=== PATIENT | male | born 1970 | race Caucasian/White ===

== ENCOUNTER 2022-08-19 20:01 | Inpatient (IN) | payer OTHER ==
[~2022-08-19] VITALS: Ht 160 cm; Wt 104.8 kg
--- NOTE | 2022-08-19 20:02 | NUR ---
PT BROUGHT TO BED 8 VIA BETINA IRVIN
[2022-08-19 20:03] VITALS: BP 114/29
[2022-08-19 20:52] LABS: MEAN CORPUSCULAR HEMOGLOBIN 21 pg (27-31); MEAN CORPUSCULAR HGB CONC 28 g/dL (33-37); PLATELET COUNT (AUTO) 584 K/uL (140-450); RED BLOOD CELL COUNT(AUTO) 2.21 MIL/uL (4.20-6.10); RED CELL DISTRIBUTION WIDTH 21.8 % (11.6-13.7)
[2022-08-19 21:14] LABS: WHITE BLOOD COUNT (AUTO) 43.5 K/uL (4.8-10.8)
[2022-08-19 21:15] LABS: HEMATOCRIT 16.6 % (36-52); HEMOGLOBIN 4.7 g/dL (12.0-18.0)
[2022-08-19] MEDS ORDERED: cefTRIAXone 1,000 MG in DEXT 5% MINI-BAG PLUS 50 ML IV ONE (21:15)
[2022-08-19] MEDS: NACL 0.9% 1,000 ML IV SCH (21:27)
[2022-08-19 21:28] LABS: ALBUMIN 2.7 g/dL (3.4-5.0); CARBON DIOXIDE 27.7 mmol/L (21-32); CREATININE 1.5 mg/dL (0.6-1.3); POTASSIUM 4.7 mmol/L (3.5-5.1); TOTAL BILIRUBIN 1.7 mg/dL (0.0-1.0)
[2022-08-19] MEDS ORDERED: cefTRIAXone 1,000 MG VIAL ONE (21:29)
[2022-08-19 21:42] LABS: CORRECTED WHITE BLOOD COUNT 39.9 K/uL (4.5-11.0); EOSINOPHILS % (MANUAL) 1 % (0-4); LYMPHOCYTES % (MANUAL) 21 % (20-46); MONOCYTES % (MANUAL) 3 % (5-12)
[2022-08-19 21:43] LABS: PROMYELOCYTES % 1 % (0-0)
[2022-08-19 21:52] LABS: PROTHROMBIN TIME 18.6 secs (10.8-13.4)
[2022-08-19] MEDS ORDERED: NACL 0.9% 1,000 ML IV ONE (21:55)
[2022-08-19] MEDS ORDERED: VANCOMYCIN PER PHARMACY MC PRN (23:10)
--- NOTE | 2022-08-19 23:40 | NUR ---
CALLED TO BEDSIDE BY CHAPITO NULL, RECEIVED PT ON 6L NC SATING 85% AND TACHYNEIC. BREATH SOUNDS WERE CLEAR, DIMINISHED AT THE BASES. PLACED PT ON HIGH FOW 40L/min, 60%, 37DEG JERAMY. PT THEN SATING 100% RR 20 AND HR 105.
--- NOTE | 2022-08-19 23:43 | NUR ---
RT by bedside. O2 sat 85% on 6L NC. Pt placed on hi flow at 40 L/MIN and O2 sat 97%
--- NOTE | 2022-08-19 23:46 | NUR ---
Blood transfusion started. VSS. Pt alert and responsive. Denies any pain or discomfort at this time
[2022-08-20] VITALS (21 sets, daily range): BP systolic 94–140; BP diastolic 48–119
--- NOTE | 2022-08-20 00:01 | NUR ---
Pt on hi flow. o2 sat 97% on 40L/min, 60% O2
--- NOTE | 2022-08-20 00:01 | NUR ---
Pt alert and responsive at this time. Resting comfortably. VSS. Blood infusing at this time.
[2022-08-20] MEDS ORDERED: VANCOMYCIN 1GM/DEXT 5% PREMIX 200 ML IV SCH (00:30)
--- NOTE | 2022-08-20 01:10 | NUR ---
Report given to Luis URIARTE
[2022-08-20] MEDS ORDERED: VANCOMYCIN 1,000 MG VIAL ONE ×2 (02:26→22:01)
[2022-08-20] MEDS: NACL 0.9% 1,000 ML IV SCH (02:58)
[2022-08-20] MEDS ORDERED: PIPERACILLIN/TAZOBACTAM 3.375 GM VIAL IV ONE (05:01)
[2022-08-20] MEDS: PIPERACILLIN/TAZOBACTAM 3.375 GM in DEXTROSE 5% 50 ML IV SCH ×2 (05:32→13:21)
[2022-08-20] MEDS ORDERED: LEVOFLOXACIN 500 MG/D5W PREMIX 100 ML IV SCH (06:00)
--- NOTE | 2022-08-20 07:15 | NUR ---
RECEIVED BEDSIDE REPORT FROM DIRECTOR OF WEB MARKETING MEMO RN. PT AWAKE, ALERT TO PLACE AND YEAR. ON HI FLOW O2 40L 60%, NO S/S OF ACUTE OF RESPIRATORY DISTRESS. INTERMITTED COUGH. ST ON MONITOR. IV 20 G TO RT HAND, INFUSING 1 UNIT PRBC @ 150 MLS/H, TKO@ 5ML/S,. LT AC 20 G, SALINE LOCKED. NPO EXCEPT MEDS. URINAL IN USE, URINE CLEAR AND LIGHT LUIS. GENERALIZED WEAKNESS, BEDREST. SKIN INTACT. HOB ELEVATED, BED TO LOWEST POSITION, CALL LIGHT WITHIN REACH, WILL CONTINUE TO MONITOR.
[2022-08-20] MEDS ORDERED: NACL 0.9% 1,000 ML IV SCH (09:05)
[2022-08-20] MEDS ORDERED: MAG SULF 2000 MG/WATER PREMIX 50 ML IV PRN (09:05)
[2022-08-20] MEDS ORDERED: POTASSIUM CHLORIDE 10 MEQ TABER PO PRN (09:05)
[2022-08-20] MEDS ORDERED: ONDANSETRON 4 MG/2 ML VIAL IVP PRN (09:05)
[2022-08-20] MEDS ORDERED: HYDROcodone/APAP 7.5/325 MG 1 TAB PO PRN (09:05)
[2022-08-20] MEDS ORDERED: DEXTROSE 50% 50 ML SYR IVP PRN (09:10)
[2022-08-20 10:00] LABS: APPEARANCE,URINE CLEAR (CLEAR); BILIRUBIN,URINE NEGATIVE (NEGATIVE); BLOOD, URINE NEGATIVE (NEGATIVE); COLOR,URINE YELLOW (YELLOW); LEUKOCYTE ESTERASE ,URINE NEGATIVE (NEGATIVE); NITRITE, URINE NEGATIVE (NEGATIVE); UGLUCOSE NEGATIVE (NEGATIVE)
[2022-08-20 10:13] LABS: BARBITURATE, URINE NEGATIVE ng/ml (NEG <=200); BENZODIAZEPINE, URINE NEGATIVE ng/mL (NEG <=200); CANNABINOID, URINE NEGATIVE ng/mL (NEG <=50); COCAINE, URINE NEGATIVE ng/mL (NEG <=300); OPIATE, URINE NEGATIVE ng/mL (NEG <=2000); PHENCYCLIDINE SCREEN,URINE NEGATIVE ng/mL (NEG <=25)
--- NOTE | 2022-08-20 10:45 | NUR ---
DR WEST ROUNDFRED AT BEDSIDE. UPDATED PT INFORMATION.
[2022-08-20 11:23] LABS: BASOPHILS # (AUTO) 0.1 K/uL (0.00-0.22); BASOPHILS % (AUTO) 0.2 % (0.0-2.0); EOSINOPHILS # (AUTO) 0.6 K/uL (0-0.4); EOSINOPHILS % (AUTO) 1.4 % (0.0-4.0); HEMATOCRIT 20.5 % (36-52); LYMPHOCYTES # (AUTO) 5.4 K/uL (2.0-11.5); MEAN CORPUSCULAR HEMOGLOBIN 24 pg (27-31); MEAN CORPUSCULAR HGB CONC 31 g/dL (33-37); MEAN CORPUSCULAR VOLUME 79.3 fL (80-94); MONOCYTES # (AUTO) 3.2 K/uL (0.8-1.0); MONOCYTES % (AUTO) 7.8 % (1.7-9.3); NEUTROPHILS # (AUTO) 32.2 K/uL (1.8-7.7); NEUTROPHILS % (AUTO) 77.6 % (42.2-75.2); PLATELET COUNT (AUTO) 442 K/uL (140-450); RED BLOOD CELL COUNT(AUTO) 2.58 MIL/uL (4.20-6.10)
[2022-08-20] MEDS: BLOOD GLUCOSE MONITORING 1 DEV DEV FS SCH ×3 (11:30→21:56)
[2022-08-20 11:40] LABS: HEMOGLOBIN 6.3 g/dL (12.0-18.0); WHITE BLOOD COUNT (AUTO) 41.5 K/uL (4.8-10.8)
[2022-08-20 11:54] LABS: PROTHROMBIN TIME 14.9 secs (10.8-13.4)
[2022-08-20 12:04] LABS: ANION GAP 5.4 (8-16); CARBON DIOXIDE 34.9 mmol/L (21-32); CREATININE 0.8 mg/dL (0.6-1.3); POTASSIUM 5.3 mmol/L (3.5-5.1)
[2022-08-20 12:11] LABS: FREE T4 (FREE THYROXINE) 0.98 ng/dL (0.76-1.46); MAGNESIUM 2.6 mg/dL (1.8-2.4); PHOSPHORUS 2.7 mg/dL (2.5-4.9); THYROID STIMULATING HORMONE 2.37 uIU/mL (0.34-3.74)
--- NOTE | 2022-08-20 12:35 | NUR ---
DR SILVA ROUNDING AT BEDSIDE. UPDATED PT INFORMATION. ORDERED DC IVF NS.
[2022-08-20] MEDS ORDERED: LACTULOSE 20 GM/30 ML UDC PO SCH (13:00)
--- NOTE | 2022-08-20 13:42 | NUR ---
RECEIVED PHONE CALL FROM DR TATUM. PUT PT ON BIPAP, ABG AT 5PM.
[2022-08-20] MEDS ORDERED: SODIUM ZIRCONIUM CYCLOSILICATE 10 GM POWD.PACK PO SCH (15:00)
--- NOTE | 2022-08-20 15:42 | NUR ---
PATIENT HAS BEEN SCREENED AND CATEGORIZED HIGH NUTRITION RISK. PATIENT WILL BE SEEN WITHIN 1-2 DAYS OF ADMISSION. REVIEWED BY DEONNA HAYDEN RD
--- NOTE | 2022-08-20 16:39 | NUR ---
ABG RESULTS SENT TO WAITING FOR RESPONSE. NURSE MADE AWARE OF RESULTS.
--- NOTE | 2022-08-20 16:54 | NUR ---
AWARE OF ABG RESULTS. NO NEW ORDERS AT THIS TIME. WILL CONTINUE TO MONITOR.
--- NOTE | 2022-08-20 17:45 | NUR ---
VERBAL ABG GIVEN BY DR. TATUM FOR PT BEFORE INTUBATION. PH7.256,PCO2 81.0, PO2 73.8,HCO3 35.2,BE 6.8, THB 8.0, FO2HB 1.7, FCOHB 1.7, FMETHB 0.4, FHHB 7.4, O2 SAT 91.7, PO2/FIO2 1.85 ON 40%. WA;LED RESULTS TO DR TATUM.
--- NOTE | 2022-08-20 18:07 | NUR ---
PT INTUBATED BY DR TATUM. 20MG ETOMIDATE, 50 ROCURONIUM. ETT 7.5, 24 CM @ LIP. ETT TO VENT, AC VC FIO2 100%, VT 500, RATE 20, PEEP 5. NG TUBE INSERTED TO LT NARE. CONFIRMED BY CHEST XR.
--- NOTE | 2022-08-20 18:08 | NUR ---
PT INTUBATED BY ETT 7.5 SECURED @24 TEETH/GUM. BILATERAL BREATH SOUNDS. PROPER PLACEMENT BY COLOR CHANGE WITH CO2 DETECTOR. CXR TO BE ORDERED.
--- NOTE | 2022-08-20 18:31 | NUR ---
PT ON VENTILATOR 7.5 ETT NOW SECURED @23 TEETH/GUM DUE TO CXR. VENT IS PLUGGED INTO A RED OUTLET WITH ALARMS ON AND FUNCTIONING. VENT SETTINGS ORDERED BY AC 20, VT 500, PEEP 5 AND FIO2 100%. AMBU BAG IS PRESENT NEAR BEDSIDE.
[2022-08-20] MEDS ORDERED: fentaNYL citrate 1 MG in NACL 0.9% 80 ML IV PRN (19:10)
--- NOTE | 2022-08-20 19:15 | NUR ---
ENDORSED TO DOBBY LOOM WEAVER MEMO RN FOR CONTINUITY OF CARE. ALL QUESTION ANSWERED.
[2022-08-20] MEDS ORDERED: DEXMEDETOMIDINE HCL 100 MCG/ML 2 ML VIAL IV ONE (19:18)
[2022-08-20] MEDS: AZITHROMYCIN 500 MG in DEXTROSE 5% 250 ML IV SCH (19:34)
[2022-08-20] MEDS ORDERED: MULTIVITAMIN-12 10 ML in NACL 0.9% 1,000 ML IV SCH (20:00)
[2022-08-20] MEDS ORDERED: THIAMINE 200 MG/2 ML VIAL IV SCH (20:00)
[2022-08-20] MEDS ORDERED: FOLIC ACID 5 MG/ML SYR IV SCH (20:00)
[2022-08-20] MEDS ORDERED: fentaNYL citrate 0.05 MG/ML VIAL ONE (20:08)
[2022-08-20 20:11] LABS: BASOPHILS # (AUTO) 0.3 K/uL (0.00-0.22); BASOPHILS % (AUTO) 0.7 % (0.0-2.0); EOSINOPHILS # (AUTO) 0.8 K/uL (0-0.4); EOSINOPHILS % (AUTO) 1.9 % (0.0-4.0); HEMATOCRIT 24.5 % (36-52); HEMOGLOBIN 7.7 g/dL (12.0-18.0); LYMPHOCYTES # (AUTO) 6.6 K/uL (2.0-11.5); LYMPHOCYTES % (AUTO) 14.9 % (20.5-51.1); MEAN CORPUSCULAR HEMOGLOBIN 26 pg (27-31); MEAN CORPUSCULAR HGB CONC 31 g/dL (33-37); MEAN CORPUSCULAR VOLUME 81.7 fL (80-94); MONOCYTES # (AUTO) 2.6 K/uL (0.8-1.0); MONOCYTES % (AUTO) 5.9 % (1.7-9.3); NEUTROPHILS # (AUTO) 33.9 K/uL (1.8-7.7); NEUTROPHILS % (AUTO) 76.6 % (42.2-75.2); PLATELET COUNT (AUTO) 446 K/uL (140-450); RED CELL DISTRIBUTION WIDTH 23.5 % (11.6-13.7)
[2022-08-20 20:15] LABS: WHITE BLOOD COUNT (AUTO) 44.2 K/uL (4.8-10.8)
[2022-08-20] MEDS: VANCOMYCIN 1,500 MG in DEXTROSE 5% 500 ML IV SCH (21:00)
[2022-08-20] MEDS ORDERED: MULTIVITAMIN-12 10 ML VIAL IV ONE (21:18)
[2022-08-20] MEDS: DOCUSATE SODIUM 100 MG GELCAP PO SCH (21:56)
[2022-08-20] MEDS: LACTULOSE 20 GM/30 ML UDC PO SCH (21:56)
[2022-08-20] MEDS ORDERED: VANCOMYCIN 500 MG VIAL ONE (22:01)
[2022-08-20] MEDS: PROPOFOL 1000 MG/100 ML PREMIX 100 ML IV PRN (22:04)
[2022-08-21] VITALS (32 sets, daily range): BP systolic 104–126; BP diastolic 54–80
[2022-08-21] MEDS: PROPOFOL 1000 MG/100 ML PREMIX 100 ML IV PRN ×3 (04:12→13:21)
[2022-08-21 05:56] LABS: BASOPHILS # (AUTO) 0.1 K/uL (0.00-0.22); BASOPHILS % (AUTO) 0.1 % (0.0-2.0); EOSINOPHILS # (AUTO) 0.9 K/uL (0-0.4); EOSINOPHILS % (AUTO) 2.1 % (0.0-4.0); HEMATOCRIT 21.5 % (36-52); LYMPHOCYTES # (AUTO) 5.3 K/uL (2.0-11.5); LYMPHOCYTES % (AUTO) 13.1 % (20.5-51.1); MEAN CORPUSCULAR HEMOGLOBIN 25 pg (27-31); MEAN CORPUSCULAR HGB CONC 31 g/dL (33-37); MEAN CORPUSCULAR VOLUME 81.1 fL (80-94); NEUTROPHILS # (AUTO) 31.9 K/uL (1.8-7.7); NEUTROPHILS % (AUTO) 79.7 % (42.2-75.2); PLATELET COUNT (AUTO) 403 K/uL (140-450); RED BLOOD CELL COUNT(AUTO) 2.64 MIL/uL (4.20-6.10); RED CELL DISTRIBUTION WIDTH 23.2 % (11.6-13.7)
[2022-08-21 06:11] LABS: ANION GAP 9.5 (8-16); CARBON DIOXIDE 30.4 mmol/L (21-32); CREATININE 0.7 mg/dL (0.6-1.3); POTASSIUM 3.9 mmol/L (3.5-5.1)
[2022-08-21 06:15] LABS: HEMOGLOBIN 6.7 g/dL (12.0-18.0); WHITE BLOOD COUNT (AUTO) 40.1 K/uL (4.8-10.8)
[2022-08-21 06:30] LABS: MAGNESIUM 2.6 mg/dL (1.8-2.4); PHOSPHORUS 1.7 mg/dL (2.5-4.9)
--- NOTE | 2022-08-21 06:45 | NUR ---
RECEIVED PT ON ACVC 500,F25,+5,60%. VENT WHEELS ARE LOCKED, PLUGGED INTO RED OUTLET, AMBUBAG AT BEDSIDE. ALARMS ARE SET AND AUDIBLE TO THE ENVIRONMENT. SATURATION WAS 100%. FIO2 WAS TITRATED FROM 60% TO 55%.
--- NOTE | 2022-08-21 07:25 | NUR ---
BEDSIDE REPORT RECEIVED FROM MEMO RN, ALL CARES ASSUMED. PT ETT TO VENT, AC PRVC 25, 500, 60%, 5. CARTER CATHETER DRAINING TO GRAVITY. LEVOPHED AND PROPOFOL INFUSING PER TITRATION PROTOCOL. BED IN LOW AND LOCKED POSITION.
[2022-08-21] MEDS: BLOOD GLUCOSE MONITORING 1 DEV DEV FS SCH ×4 (08:10→21:23)
[2022-08-21] MEDS: PANTOPRAZOLE 40 MG INJ VIAL IVP SCH (08:35)
[2022-08-21] MEDS: DOCUSATE SODIUM 100 MG GELCAP PO SCH ×2 (08:35→21:00)
[2022-08-21] MEDS: LACTULOSE 20 GM/30 ML UDC PO SCH ×2 (08:37→21:00)
[2022-08-21 11:10] LABS: HEPATITIS A ANTIBODY IGM Negative (Negative); HEPATITIS B CORE AB TOTAL Negative (Negative); HEPATITIS B SURFACE ANTIBODY Non Reactive (.); HEPATITIS B SURFACE ANTIGEN Negative (Negative)
[2022-08-21] MEDS ORDERED: fentaNYL citrate 0.05 MG/ML VIAL ONE (13:21)
[2022-08-21] MEDS ORDERED: MIDAZOLAM 5 MG/5 ML VIAL ONE (13:21)
[2022-08-21] MEDS ORDERED: PANTOPRAZOLE 40 MG INJ VIAL IVP ONE (14:40)
[2022-08-21] MEDS ORDERED: GLUCAGON 1 MG VIAL ONE (14:45)
[2022-08-21] MEDS ORDERED: EPINEPHrine PFS 0.1 MG/ML SYR IVP ONE (14:46)
[2022-08-21] MEDS: VANCOMYCIN 1,500 MG in DEXTROSE 5% 500 ML IV SCH (15:00)
--- NOTE | 2022-08-21 15:06 | NUR ---
DC PLANNING ASSESSMENT COMPLETE SEE ASSESSMENT FOR DETAILS PER KIMBERLY, HE WILL MAKE EFFORTS IN REACHING PTS FAMILY IN [place] TO MAKE THEM AWARE OF PTS ADMISSION TO [facility]. Addendum: 08/21/22 at 1509 by Brian Martin SS Amended: Links added. Addendum: 08/28/22 at 1639 by Brian Martin SS ATTEMPTED TO OUTREACH TO PTS EMERGENCY CONTACT FOR UPDATE ON FAMILY CONTACT, HOWEVER, UNSUCCESSFUL. MESSAGE LEFT REQUESTING A RETURN PHONE CALL.
--- NOTE | 2022-08-21 15:24 | NUR ---
08/21/22 INITIAL ASSESSMENT COMPLETED PLEASE REFER TO NUTRITION ASSESSMENT UNDER CARE ACTIVITY FOR ESTIMATED NUTRITIONAL NEEDS. 1. WHEN/IF MEDICALLY APPROPRIATE TO INITIATE TF, RECOMMEND GLUCERNA 1.2 AT GOAL RATE 65 ML/HR, FWF 150 ML Q4H TOLERATED - WITH PROPOFOL AT 19.5 ML/HR, PROVIDES 1560 ML VOLUME, 2389 KCAL, 94 GM PROTEIN AND 2156 ML FREE WATER DAILY MEETING 100% ESTIMATED KCAL NEEDS AND 91% ESTIMATED PROTEIN NEEDS; ADEQUATE - START TF @ 10 ML INCREASE BY 1O ML Q4H UNTIL GOAL IS REACHED TOLERATED 2. IF PROPOFOL IS DISCONTINUED, RECOMMEND INCREASING GLUCERNA 1.2 GOAL RATE TO 75 ML/HR TOLERATED -PROVIDES 1800 ML VOLUME, 2160 KCAL, 108 GM PROTEIN AND 2349 ML FREE WATER DAILY MEETING 100% ESTIMATED KCAL AND PROTEIN NEEDS 3. MONITOR GI SYMPTOMS, GASTRIC RESIDUALS AND NUTRITION RELATED LAB VALUES 4. CONSULT RD PRN 5. RD TO FOLLOW-UP 2-3 DAYS, HIGH RISK REVIEWED BY DEONNA HAYDEN RD
[2022-08-21] MEDS: PANTOPRAZOLE 80 MG in NACL 0.9% 100 ML IVP SCH (15:30)
[2022-08-21] MEDS ORDERED: fentaNYL citrate 0.05 MG/ML VIAL IVP SCH (16:25)
[2022-08-21] MEDS ORDERED: MIDAZOLAM 2 MG/2 ML VIAL IVP SCH (16:25)
[2022-08-21] MEDS ORDERED: GLUCAGON 1 MG VIAL IVP SCH (17:00)
[2022-08-21] MEDS ORDERED: PANTOPRAZOLE 40 MG INJ VIAL IVP SCH (17:35)
[2022-08-21] MEDS ORDERED: SODIUM PHOSPHATE 15 MMOLE in NACL 0.9% 250 ML IV SCH (18:00)
[2022-08-21] MEDS: AZITHROMYCIN 500 MG in DEXTROSE 5% 250 ML IV SCH (18:44)
[2022-08-22] VITALS (30 sets, daily range): BP systolic 97–134; BP diastolic 45–75
[2022-08-22] MEDS: PANTOPRAZOLE 80 MG in NACL 0.9% 100 ML IVP SCH ×3 (01:30→22:02)
[2022-08-22] MEDS: PROPOFOL 1000 MG/100 ML PREMIX 100 ML IV PRN ×3 (02:09→19:23)
[2022-08-22 05:50] LABS: HEMATOCRIT 27.5 % (36-52); MEAN CORPUSCULAR HEMOGLOBIN 27 pg (27-31); MEAN CORPUSCULAR HGB CONC 33 g/dL (33-37); MEAN CORPUSCULAR VOLUME 81.9 fL (80-94); PLATELET COUNT (AUTO) 372 K/uL (140-450); RED BLOOD CELL COUNT(AUTO) 3.36 MIL/uL (4.20-6.10); RED CELL DISTRIBUTION WIDTH 23.1 % (11.6-13.7)
[2022-08-22 06:31] LABS: WHITE BLOOD COUNT (AUTO) 29.3 K/uL (4.8-10.8)
[2022-08-22 06:33] LABS: MAGNESIUM 2.7 mg/dL (1.8-2.4); PHOSPHORUS 3.1 mg/dL (2.5-4.9)
--- NOTE | 2022-08-22 07:27 | NUR ---
REPORT RECEIVED FROM MEMO URIARTE, ALL CARES ASSUMED.
[2022-08-22] MEDS: BLOOD GLUCOSE MONITORING 1 DEV DEV FS SCH ×4 (07:30→21:15)
[2022-08-22 08:52] LABS: ANION GAP 6.4 (8-16); CARBON DIOXIDE 32.5 mmol/L (21-32); CREATININE 0.6 mg/dL (0.6-1.3); POTASSIUM 3.9 mmol/L (3.5-5.1)
[2022-08-22 08:58] LABS: BASOPHILS # (AUTO) 0.1 K/uL (0.00-0.22); BASOPHILS % (AUTO) 0.4 % (0.0-2.0); EOSINOPHILS # (AUTO) 0.6 K/uL (0-0.4); EOSINOPHILS % (AUTO) 2.2 % (0.0-4.0); HEMATOCRIT 26.7 % (36-52); HEMOGLOBIN 8.6 g/dL (12.0-18.0); LYMPHOCYTES # (AUTO) 2.1 K/uL (2.0-11.5); MEAN CORPUSCULAR HEMOGLOBIN 26 pg (27-31); MEAN CORPUSCULAR HGB CONC 32 g/dL (33-37); MEAN CORPUSCULAR VOLUME 81.6 fL (80-94); MONOCYTES # (AUTO) 1.7 K/uL (0.8-1.0); MONOCYTES % (AUTO) 5.8 % (1.7-9.3); NEUTROPHILS % (AUTO) 84.6 % (42.2-75.2); PLATELET COUNT (AUTO) 384 K/uL (140-450); RED BLOOD CELL COUNT(AUTO) 3.27 MIL/uL (4.20-6.10); RED CELL DISTRIBUTION WIDTH 22.9 % (11.6-13.7)
[2022-08-22] MEDS: DOCUSATE SODIUM 100 MG GELCAP PO SCH ×2 (08:59→21:58)
[2022-08-22] MEDS: LACTULOSE 20 GM/30 ML UDC PO SCH ×2 (08:59→21:58)
[2022-08-22] MEDS: PANTOPRAZOLE 40 MG INJ VIAL IVP SCH (08:59)
[2022-08-22 09:00] LABS: WHITE BLOOD COUNT (AUTO) 29.5 K/uL (4.8-10.8)
[2022-08-22 10:00] LABS: EOSINOPHILS % (MANUAL) 7 % (0-4); LYMPHOCYTES % (MANUAL) 6 % (20-46); MONOCYTES % (MANUAL) 3 % (5-12)
[2022-08-22 10:01] LABS: OTHER CELLS,MANUAL % 10 (0-0)
[2022-08-22] MEDS: VANCOMYCIN 1,500 MG in DEXTROSE 5% 500 ML IV SCH ×2 (10:33→21:00)
[2022-08-22] MEDS: PIPERACILLIN/TAZOBACTAM 3.375 GM in DEXTROSE 5% 50 ML IV SCH (18:00)
[2022-08-22] MEDS: AZITHROMYCIN 500 MG in DEXTROSE 5% 250 ML IV SCH (18:21)
[2022-08-22] MEDS ORDERED: PIPERACILLIN/TAZOBACTAM 3.375 GM VIAL IV ONE (18:41)
--- NOTE | 2022-08-22 19:09 | NUR ---
SBAR REPORT GIVEN TO BHUPINDER URIARTE, ALL CARES ENDORSED.
--- NOTE | 2022-08-22 19:20 | NUR ---
RECEIVED REPORT FROM YOANA FOR CONTINUITY OF CARE FOR THIS PT. PT IS LYING SUPINE WITH HIS EYES CLOSED . HE'S AT A RASS -2 HE MOVES AND IS EASILY AROUSED.. HE'S ON PROPOFOL 30 MCG/KG/MIN, HE'S ALSO RECEIVING VERSED @.5MG/HOUR. PT IS ORALLY INTUBATED AND HE HAS A NGT IN THE LEFT NARE WITH GLUCERNA 1.2 INFUSING AT 10CC WITH A GOAL OF 65CC, ALSO FREE H20 FLUSH 150CC Q 4 HOURS.. HIS VENTILATOR SETTING SRE AC/PRVC RIO2 50%, TV 500.,RATE 25 AND PEEP 5 . HE'S TOLERATING THE SETTING WELL. HIS IV ACCESS IS MANDEEP PICC LINE, AND A RIGHT AND LEFT HAND 20 GUAGE ANGIOCATH. THE RIGHT HAND REMOVED DUE INSTABILITY AND THE HAND IS VERY SWOLLEN. PT, ABD IS GROSSLY DISTENDED SLIGHTLY SOFT TO TOUCH. HE HAS A CARTER CATH IN PLACE DRAINING A SMALL AMT OF SLIGHTLY CONSECRATED URINE . PT DOESN'T APPEAR TO BE N DISTRESS..
--- NOTE | 2022-08-22 19:25 | NUR ---
RECEIVED REPORT FROM YOANA URIARTE FOR CONTINUITY OF CARE FOR THIS PT. PT IS LYING SUPINE WITH HIS EYES CLOSED. HE'S RASS -2 ON PROPOFOL AT 30/MCG/KG/MIN. @
[2022-08-22] MEDS ORDERED: VANCOMYCIN 1,000 MG VIAL ONE (22:16)
[2022-08-23] VITALS (29 sets, daily range): BP systolic 103–139; BP diastolic 53–79
--- NOTE | 2022-08-23 | NUR ---
PT HAS COPIOUS AMTS OF THICK PURDY SECRETION AND A LOT OF ORAL SECRETIONS WELL. SUCTIONED AND ORAL CARE ADMINI- STERED.
[2022-08-23] MEDS: PROPOFOL 1000 MG/100 ML PREMIX 100 ML IV PRN ×6 (00:38→22:56)
[2022-08-23] MEDS ORDERED: PIPERACILLIN/TAZOBACTAM 3.375 GM VIAL IV ONE ×2 (03:09→04:45)
--- NOTE | 2022-08-23 04:52 | NUR ---
AM CARE GIVEN, PT SKIN IS INTACT. [T REQUIRES FREQUENT SUCTIONING. HIS SECRETIONS ARE COPIOUS AND THICK. HIS LAST SUCTION WAS BLOOD TINGED..
[2022-08-23] MEDS: PIPERACILLIN/TAZOBACTAM 3.375 GM in DEXTROSE 5% 50 ML IV SCH ×6 (05:52→23:51)
[2022-08-23 06:23] LABS: BASOPHILS # (AUTO) 0.1 K/uL (0.00-0.22); BASOPHILS % (AUTO) 0.7 % (0.0-2.0); EOSINOPHILS # (AUTO) 0.5 K/uL (0-0.4); EOSINOPHILS % (AUTO) 2.8 % (0.0-4.0); HEMATOCRIT 22.4 % (36-52); LYMPHOCYTES # (AUTO) 1.5 K/uL (2.0-11.5); LYMPHOCYTES % (AUTO) 8.8 % (20.5-51.1); MEAN CORPUSCULAR HEMOGLOBIN 27 pg (27-31); MEAN CORPUSCULAR HGB CONC 33 g/dL (33-37); MONOCYTES # (AUTO) 1.1 K/uL (0.8-1.0); MONOCYTES % (AUTO) 6.3 % (1.7-9.3); NEUTROPHILS # (AUTO) 14.3 K/uL (1.8-7.7); NEUTROPHILS % (AUTO) 81.4 % (42.2-75.2); PLATELET COUNT (AUTO) 310 K/uL (140-450); RED BLOOD CELL COUNT(AUTO) 2.67 MIL/uL (4.20-6.10); RED CELL DISTRIBUTION WIDTH 23.9 % (11.6-13.7); WHITE BLOOD COUNT (AUTO) 17.6 K/uL (4.8-10.8)
[2022-08-23 06:35] LABS: PHOSPHORUS 2.3 mg/dL (2.5-4.9)
[2022-08-23 06:52] LABS: HEMOGLOBIN 7.3 g/dL (12.0-18.0)
--- NOTE | 2022-08-23 07:20 | NUR ---
RECEIVED BEDSIDE REPORT FROM BHUPINDER HEATING ELEMENT BUILDER POWER HOUSE ENGINEER, FOR CONTINUITY OF CARE. PT SEDATED A/OX0. ETT TO VENT. SR ON MONITOR. PICC TO MANDEEP INFUSING PROPOFOL AT 30 MCG/KG/MIN, FENTANYL AT 0.5 MCG/KG/HR, PROTONIX DRIP AT 10 ML/HR, AND NS TKO. IV TO L HAND SALINE LOCK. NGT IN PLACE INFUSING TUBE FEEDING AT 30ML/HR. F/C IN PLACE TO GRAVITY. BILATERAL WRIST RESTRAINTS IN PLACE FOR SAFETY. HOB 30 DEGREES, WHEELS LOCKED AND BED IN LOWEST POSITION. STANDARD PRECAUTION.
--- NOTE | 2022-08-23 07:32 | NUR ---
REPORT GIVEN TO RYAN URIARTE FOR CONTINUITY OF CARE.
[2022-08-23 07:35] LABS: ANION GAP 9.3 (8-16); CARBON DIOXIDE 26.1 mmol/L (21-32); CREATININE 0.6 mg/dL (0.6-1.3); POTASSIUM 3.4 mmol/L (3.5-5.1)
[2022-08-23] MEDS ORDERED: CALCIUM GLUC 1 GM/50 mL NS BAG 50 ML IV SCH ×2 (08:30→09:00)
[2022-08-23] MEDS: LACTULOSE 20 GM/30 ML UDC PO SCH ×2 (08:46→21:26)
[2022-08-23] MEDS: DOCUSATE 100 MG/10 ML UDC GT SCH ×2 (08:46→21:26)
[2022-08-23] MEDS: POTASSIUM CHLORIDE 20% 40 MEQ/15 ML UDC GT PRN (08:47)
[2022-08-23] MEDS: PANTOPRAZOLE 80 MG in NACL 0.9% 100 ML IVP SCH ×2 (08:53→19:49)
--- NOTE | 2022-08-23 08:55 | NUR ---
NGT RESIDUAL 5ML. LARGE AMOUNT OF PURDY SECRETIONS SUCTIONED FROM MOUTH AND NOSE. STOPPED TUBE FEEDING. AUSCULTATED AIR INSERTION IN STOMACH REGION AND ORDERED STAT CXR FOR PLACEMENT CONFIRMATION.
--- NOTE | 2022-08-23 09:25 | NUR ---
SEEN AND EXAMINED BY DR. FLORES AT BEDSIDE. ORDERS TO START CPAP TOMORROW.
[2022-08-23] MEDS ORDERED: FUROSEMIDE 20 MG/2 ML VIAL IVP SCH (09:51)
[2022-08-23] MEDS: VANCOMYCIN 1,500 MG in DEXTROSE 5% 500 ML IV SCH ×2 (10:30→21:28)
--- NOTE | 2022-08-23 11:30 | NUR ---
REMOVED OLD NGT PER RECENT CXR AND INSERTED NEW 16FR NGT TO R NARE. AUSCULTATED AIR INSERTION IN STOMACH REGION. ORDERED STAT CXR FOR PLACEMENT CONFIRMATION.
[2022-08-23] MEDS: BLOOD GLUCOSE MONITORING 1 DEV DEV FS SCH ×3 (12:26→23:52)
--- NOTE | 2022-08-23 14:00 | NUR ---
RESUMED TUBE FEEDING AT 40ML/HR.
--- NOTE | 2022-08-23 16:58 | NUR ---
08/23/22 RD FOLLOW UP COMPLETED. PLEASE REFER TO NUTRITION ASSESSMENT UNDER CARE ACTIVITY FOR ESTIMATED NUTRITIONAL NEEDS. 1. RECOMMEND DECREASING TF RATE OF GLUCERNA 1.2 TO 60ML/HR, FWF 150 ML Q4H PT TOLERATES. - WITH PROPOFOL AT CURRENT RATE, PROVIDES 1560 ML VOLUME, 2298 KCAL, AND 86 GM PROTEIN DAILY MEETING 100% ESTIMATED KCAL NEEDS AND 83% ESTIMATED PROTEIN NEEDS; ADEQUATE 2. IF PROPOFOL IS DISCONTINUED, RECOMMEND INCREASING GLUCERNA 1.2 GOAL RATE TO 75 ML/HR TOLERATED -PROVIDES 1800 ML VOLUME, 2160 KCAL AND 108 GM PROTEIN DAILY MEETING 100% ESTIMATED KCAL AND PROTEIN NEEDS 3. MONITOR GI SYMPTOMS, GASTRIC RESIDUALS AND NUTRITION RELATED LAB VALUES 4. CONSULT RD PRN 5. RD TO FOLLOW-UP 2-3 DAYS, HIGH RISK JULIANA FINCH RD
[2022-08-23] MEDS: AZITHROMYCIN 500 MG in DEXTROSE 5% 250 ML IV SCH (18:35)
--- NOTE | 2022-08-23 19:23 | NUR ---
ENDORSED BEDSIDE REPORT TO DEVIN INDUSTRIAL GAS SERVICER SECURITY DIRECTOR, FOR CONTINUITY OF CARE.
--- NOTE | 2022-08-23 19:30 | NUR ---
Report rec'd from off going shift Rn - pt intubated - pt has a RIJ x 2 lumen (propofol @30mcg/Fentanyl @0.5mcg/Protonix@8mg) L.A/c@20 KVO +abx - LH@20. Pt has a briceno - pt has OGT with Glucerna @40ml with 150 ccQ4h flush - pt is restrained bilateral soft restraint - pt RASS -2 , arouses to stimuli and his name. Vitals stable will continue to monitor.
[2022-08-23] MEDS ORDERED: CALCIUM GLUC 1 GM/50 mL NS BAG 50 ML IV ONE ×2 (19:40→21:44)
--- NOTE | 2022-08-23 22:16 | NUR ---
2210 LOWERED FIO2 TO 45%. SATS 97%
[2022-08-23] MEDS: INSULIN LISPRO SLIDING SCALE 100 UNITS/ML VIAL SUBQ PRN (23:50)
[2022-08-24] VITALS (29 sets, daily range): BP systolic 102–136; BP diastolic 56–92
--- NOTE | 2022-08-24 | NUR ---
Pt RR elevated 40's/ 50's - pt more awake, follows simple commands,welsh speaking only, RN Jorge Luis spoke with pt - sedation titrated per protocol - Propofol now @40, Fentanyl @1mcg RR reduced to 20's
[2022-08-24] MEDS: PROPOFOL 1000 MG/100 ML PREMIX 100 ML IV PRN ×3 (02:05→21:36)
[2022-08-24] MEDS: PANTOPRAZOLE 80 MG in NACL 0.9% 100 ML IVP SCH ×3 (03:30→22:24)
--- NOTE | 2022-08-24 03:30 | NUR ---
AM labs draw per protocol
--- NOTE | 2022-08-24 04:13 | NUR ---
0410 LOWERED FIO2 TO 40%. SATS 97%
--- NOTE | 2022-08-24 05:45 | NUR ---
Full bed bath given with CHG wipes, linens changed, pt had a large dark brown BM - oral care done x 3 - briceno care done x 3 for the shift - scds and restraints removed during back for skin check - and replaced. - skin is in tact - sacrum intact - heels intact. BP cuff changed, switched to pts L.leg from the R. leg - stat lock for briceno changed - positioned moved from R.Leg to L. leg - pulse ox changed. All lines are labelled. pt stable.
[2022-08-24] MEDS: PIPERACILLIN/TAZOBACTAM 3.375 GM in DEXTROSE 5% 50 ML IV SCH ×4 (06:02→23:26)
[2022-08-24] MEDS: BLOOD GLUCOSE MONITORING 1 DEV DEV FS SCH ×4 (06:08→23:25)
[2022-08-24 06:21] LABS: BASOPHILS # (AUTO) 0.1 K/uL (0.00-0.22); BASOPHILS % (AUTO) 0.9 % (0.0-2.0); EOSINOPHILS # (AUTO) 0.8 K/uL (0-0.4); EOSINOPHILS % (AUTO) 4.7 % (0.0-4.0); HEMOGLOBIN 8.5 g/dL (12.0-18.0); LYMPHOCYTES # (AUTO) 1.7 K/uL (2.0-11.5); LYMPHOCYTES % (AUTO) 10.2 % (20.5-51.1); MEAN CORPUSCULAR HEMOGLOBIN 27 pg (27-31); MEAN CORPUSCULAR HGB CONC 31 g/dL (33-37); MEAN CORPUSCULAR VOLUME 84.5 fL (80-94); MONOCYTES % (AUTO) 6.4 % (1.7-9.3); NEUTROPHILS # (AUTO) 12.6 K/uL (1.8-7.7); NEUTROPHILS % (AUTO) 77.8 % (42.2-75.2); PLATELET COUNT (AUTO) 333 K/uL (140-450); RED BLOOD CELL COUNT(AUTO) 3.19 MIL/uL (4.20-6.10); RED CELL DISTRIBUTION WIDTH 24.1 % (11.6-13.7); WHITE BLOOD COUNT (AUTO) 16.3 K/uL (4.8-10.8)
--- NOTE | 2022-08-24 06:30 | NUR ---
Left hand IV discontinued.
[2022-08-24 06:35] LABS: MAGNESIUM 2.2 mg/dL (1.8-2.4); PHOSPHORUS 3.8 mg/dL (2.5-4.9)
--- NOTE | 2022-08-24 07:16 | NUR ---
report given to oncoming Rn - pt stable
[2022-08-24] MEDS: DOCUSATE 100 MG/10 ML UDC GT SCH ×2 (09:00→21:30)
[2022-08-24] MEDS: LACTULOSE 20 GM/30 ML UDC PO SCH ×2 (09:00→21:31)
--- NOTE | 2022-08-24 09:05 | NUR ---
PT. WITH LOW ZI SCALE AT MODERATE TO HIGH RISK, CONTINUE TO FOLLOW PRESSURE INJURY PREVENTION INTERVENTIONS. -POSITIONING: TURN AND REPOSITION PATIENT Q 2H OR SOONER USE PILLOWS TO KEEP BONY PROMINENCES FROM DIRECT CONTACT WITH SURFACES USE REPOSITIONING WEDGES TO PROVIDE 30-DEGREE ANGLE FOR SIDE LYING POSITIONS OFFLOADING OR FOAM DRESSING TO ALL TUBING TO PREVENT MEDICAL DEVICES RELATED PRESSURE INJURY -RE-EVALUATING AND MANAGING INCONTINENCE MONITOR SKIN CONDITION DURING POSITION CHANGE DO NOT MASSAGE REDNESS, BONY PROMINENCES FREQUENT UMESH-CARE AND PROVIDE BARRIER CREAMS PRN IF SOILING MOISTURE CONTROL BY OFFER BED LAGUERRE/URINAL /ABSORBENT PAD TO WICK AND HOLD MOISTURE KEEP SKIN DRY AND PROTECT FROM FRICTION -MANAGE FRICTION/SHEAR/MOBILITY KEEP HOB AT THE LOWEST LEVEL OF ELEVATION NO MORE THAN 30 DEGREE UNLESS OTHERWISE CONTRAINDICATED USE LIFT SHEET OR TRANSFER DEVICE TO MOVE PATIENT AND PREVENT LATERAL SHEER. PROTECT HEELS, ELBOWS BONY PROMINENCES WITH SKIN BERRIES OR FOAM DRESSING IF EXPOSED TO FRICTION OFFLOAD BILATERAL HEELS BY PLACING PILLOWS UNDER CALVES AT ALL TIMES, UNLESS OTHERWISE CONTRAINDICATED -PRESSURE REDISTRIBUTION SURFACE THERAPY JENNA ISOFLEX MATTRESS -NUTRITION: PLEASE FOLLOW RD RECOMMENDATIONS AND OFFER NUTRITION SUPPLEMENTS IF ORDERED. PLEASE CONTACT WOUND CARE NURSE FOR ANY QUESTION AND CHANGE OF WOUND CONDITION.
[2022-08-24] MEDS: VANCOMYCIN 1,500 MG in DEXTROSE 5% 500 ML IV SCH ×2 (10:00→22:17)
--- NOTE | 2022-08-24 10:10 | NUR ---
SEEN BY DR. COOL AT BED SIDE , NO ORDER RECEIVED .
--- NOTE | 2022-08-24 11:00 | NUR ---
SEEN BY DR. FLORES AT BED SIDE [facility] TO HAVE PT. TRY ON WEANING PARAMETER,
--- NOTE | 2022-08-24 11:00 | NUR ---
VISIT BY BROTHER ALLEGRA AT BEDSIDE.
[2022-08-24 12:33] LABS: CARBON DIOXIDE 30.4 mmol/L (21-32); CREATININE 0.9 mg/dL (0.6-1.3); POTASSIUM 3.4 mmol/L (3.5-5.1)
--- NOTE | 2022-08-24 15:02 | NUR ---
PT LASTED 30 MIN TOTAL OF SBT. CPAP 5 PS 10 AND FIO2 45%. NURSE AWARE. PT NOW BACK TO ORIGINAL SETTINGS. ALARMS ON AND FUNCTIONING. PT BECAME TACHYPNEIC AND SPO2 DECREASED TO LOW 80'S %. PT TO BE PLACED BACK ON SEDATION BY ICU NURSE.
--- NOTE | 2022-08-24 16:30 | NUR ---
VISIT BY FRIEND AT BEDSIDE,
--- NOTE | 2022-08-24 17:40 | NUR ---
REPOSITION SKIN CARE AND QRAL CARE GIVEN RECEIVE BREATHING TREATMENT.
[2022-08-24] MEDS: AZITHROMYCIN 500 MG in DEXTROSE 5% 250 ML IV SCH (17:45)
[2022-08-24] MEDS ORDERED: POTASSIUM CHLORIDE 20% 40 MEQ/15 ML UDC GT SCH (18:15)
--- NOTE | 2022-08-24 18:15 | NUR ---
POTASSIUM VAI NG TUBE GIVEN ORDERED,
--- NOTE | 2022-08-24 21:00 | NUR ---
REC'D PT FROM CHAPITO WORKMAN TO ASSUME PLAN OF CARE. PT'S ORALLY INTUBATED AC/PRVC 40% FI02, 500 TV, PEEP 5 RATE OF 25. ON GLUCERNA FEEDING FORMULA AT 40CC/HR TO THE RIGHT NGT PATENT AND INTACT. ON PROPOFOL, PROTONIX AND FENTANYL DRIP INFUSING ON THE MANDEEP PICC AND TKO NS TO THE LAC #20G ALL IV LINES PATENT AND INTACT. BOTH SCD ON AND LEG BOOTS. NO FAMILIES PRESENT AT THE BEDSIDE. PT'S VITAL SIGNS STABLE. SR AND NO APPARENT RESP DISTRESS. SAFETY AND SKIN PROTOCOL ON PROGRESS. CONTINUE MONITOR. 1999: SHIFT ASSESSMENT DONE ORAL CARE AND SKIN CARE DONE. 2099: TURNED AND REPOSITIONED CONTINUE MONITOR.
[2022-08-24] MEDS: FUROSEMIDE 20 MG/2 ML VIAL IVP SCH (21:31)
[2022-08-24] MEDS: fentaNYL citrate - 50mL vial 2.5 MG in NACL 0.9% 200 ML IV PRN (23:19)
[2022-08-24] MEDS: INSULIN LISPRO SLIDING SCALE 100 UNITS/ML VIAL SUBQ PRN (23:24)
[2022-08-24] MEDS ORDERED: PANTOPRAZOLE 80 MG in NACL 0.9% 100 ML IVP SCH (23:30)
[2022-08-25] VITALS (28 sets, daily range): BP systolic 99–141; BP diastolic 52–75
[2022-08-25] MEDS: PROPOFOL 1000 MG/100 ML PREMIX 100 ML IV PRN ×5 (02:55→23:55)
[2022-08-25] MEDS: INSULIN LISPRO SLIDING SCALE 100 UNITS/ML VIAL SUBQ PRN ×2 (05:03→23:59)
[2022-08-25] MEDS: PIPERACILLIN/TAZOBACTAM 3.375 GM in DEXTROSE 5% 50 ML IV SCH ×4 (05:03→23:57)
[2022-08-25] MEDS: BLOOD GLUCOSE MONITORING 1 DEV DEV FS SCH ×4 (05:04→23:56)
[2022-08-25 05:33] LABS: BASOPHILS # (AUTO) 0.1 K/uL (0.00-0.22); BASOPHILS % (AUTO) 0.6 % (0.0-2.0); EOSINOPHILS # (AUTO) 0.6 K/uL (0-0.4); EOSINOPHILS % (AUTO) 4.4 % (0.0-4.0); HEMOGLOBIN 8.2 g/dL (12.0-18.0); LYMPHOCYTES # (AUTO) 1.8 K/uL (2.0-11.5); LYMPHOCYTES % (AUTO) 14.2 % (20.5-51.1); MEAN CORPUSCULAR HEMOGLOBIN 26 pg (27-31); MEAN CORPUSCULAR HGB CONC 32 g/dL (33-37); MONOCYTES # (AUTO) 0.9 K/uL (0.8-1.0); MONOCYTES % (AUTO) 6.8 % (1.7-9.3); NEUTROPHILS # (AUTO) 9.4 K/uL (1.8-7.7); PLATELET COUNT (AUTO) 320 K/uL (140-450); RED BLOOD CELL COUNT(AUTO) 3.14 MIL/uL (4.20-6.10); WHITE BLOOD COUNT (AUTO) 12.7 K/uL (4.8-10.8)
[2022-08-25 06:12] LABS: ANION GAP 9.1 (8-16); CARBON DIOXIDE 31.2 mmol/L (21-32); POTASSIUM 3.3 mmol/L (3.5-5.1)
[2022-08-25 06:23] LABS: MAGNESIUM 2.1 mg/dL (1.8-2.4); PHOSPHORUS 3.2 mg/dL (2.5-4.9)
--- NOTE | 2022-08-25 07:15 | NUR ---
RECEIVED BEDSIDE REPORT FROM RESIDENCE COUNSELOR IVONE RN. PT SEDATED. AC PRVC FIO2 40%, VT 500, RATE 25, PEEP 5. SR ON MONITOR. PICC TO MANDEEP, RUNNING PROTONIX @ 8MG/H, PROPOFOL @ 30 MCG/KG.MIN, FENTANYL @ 1 MCG/KG/H. LT AC 20G, RUNNING TKO NS @ 5 ML/H. NG TUBE FEEDING TO LT NARE, PAUSED DUE TO HIGH RESIDUAL. GLUCERNA @ 40MLS, FWF 150ML/H Q6H. CARTER IN PLACE TO GRAVITY, URINE CLEAR AND LIGHT LUIS. SKIN INTACT. SCD IN PLACE. BILAT SOFT WRIST RESTRAINT IN PLACE, NO S/S OF INJURY. BEDREST. BED TO LOWEST POSITION, HOB ELEVATED, CALL LIGHT WITHIN REACH, WILL CONTINUE TO MONITOR.
[2022-08-25] MEDS: POTASSIUM CHLORIDE 20% 40 MEQ/15 ML UDC GT PRN (07:33)
--- NOTE | 2022-08-25 07:34 | NUR ---
0730: ENDORSED PT TO AM CHAPITO SALAZAR (ORIENTEE) TO ASSUME PLAN OF CARE. SAME VENT SETTINGS SATS FAIRLY. 300 GASTRIC RESIDUAL FROM NGT FEEDING, LOTS. OF SECRETIONS, SUCTIONED FREQUENTLY CREAMY COLOR. GOOD URINE OUTPUT YELLOW CLEAR COLOR. NO FALLS AND NO INJURY DURING SHIFT. SAFETY AND SKIN PROTOCOL ON PROGRESS.
--- NOTE | 2022-08-25 08:01 | NUR ---
DR COOL ROUNDING AT BEDSIDE. UPDATED PT INFORMATION.
[2022-08-25] MEDS ORDERED: CALCIUM GLUC 1 GM/50 mL NS BAG 50 ML IV SCH (08:05)
[2022-08-25] MEDS: LACTULOSE 20 GM/30 ML UDC PO SCH ×2 (08:09→20:21)
[2022-08-25] MEDS: DOCUSATE 100 MG/10 ML UDC GT SCH ×2 (08:09→20:21)
[2022-08-25] MEDS: FUROSEMIDE 20 MG/2 ML VIAL IVP SCH ×2 (08:11→20:23)
[2022-08-25] MEDS: VANCOMYCIN 1,500 MG in DEXTROSE 5% 500 ML IV SCH ×2 (08:47→20:22)
--- NOTE | 2022-08-25 11:45 | NUR ---
roundriaz at bedside. Recieved order to d/c protonix drip and start protonix 40mg IVP BID. Orders noted and carried out.
--- NOTE | 2022-08-25 12:54 | NUR ---
DC PLANN[age] YRS OLD MALE PATIENT WAS ADMITTED FROM HOME WITH A DX OF HYPOXIA ,ANEMIA AND PNEUMONIA. PATIENT HAS NO MEDICAL HISTORY. CXR SHOWED MODERATE PATCHY AIRSPACE OPACITIES THROUGH OUT BILATERAL LUNGS. ABD US SHOWED NO EVIDENCE OF CHOLELITHIASIS. RAPID COVID TEST NEGATIVE. PATIENT INTUBATED SEDATED FIO2 40%.. ON LEVOPHED FENTANYL AND PROPOFOL DRIP. CONSULTED WITH PULMO, ID, GI, AND NEPHRO. DC PLAN PER PATIENT RESPOND TO THE TREATMENT. CM TO FOLLOW Addendum: 09/04/22 at 1309 by Mallory Walker RN DC PLANNING: EXTUBATED SUCCESSFULLY ON 4L/NC SATING 94% OFF DRIPS. ORDERED SWALLOWING EVALUATION STRICT ASPIRATION PRECAUTION. CONTINUED CURRENT MEDICATION. DC PLAN TO TRANSFER HIM TO [facility] TODAY AND PLAN TO DC HOME. CM TO FOLLOW.
[2022-08-25 13:57] LABS: ALBUMIN 1.4 g/dL (3.4-5.0); CARBON DIOXIDE 32.5 mmol/L (21-32); CREATININE 1.2 mg/dL (0.6-1.3); POTASSIUM 3.5 mmol/L (3.5-5.1)
--- NOTE | 2022-08-25 16:00 | NUR ---
RECEIVED PHONE CALL FROM EMILY/SISTER IN [employer], . UPDATED PT INFORMATION. EMILY SAID SHE WILL COME TO VISIT ON WEDNESDAY.
[2022-08-25] MEDS: AZITHROMYCIN 500 MG in DEXTROSE 5% 250 ML IV SCH (18:02)
--- NOTE | 2022-08-25 18:10 | NUR ---
DR BADILLO ROUNDING AT BEDSIDE. UPDATED PT INFORMATION.
--- NOTE | 2022-08-25 19:15 | NUR ---
ENDORSED TO CHIEF DIGITAL MEDIA OFFICER IVONE RN FOR CONTINUITY OF CARE. ALL QUESTION ANSWERED.
[2022-08-25] MEDS: PANTOPRAZOLE 40 MG INJ VIAL IVP SCH (20:22)
[2022-08-25] MEDS: fentaNYL citrate - 50mL vial 2.5 MG in NACL 0.9% 200 ML IV PRN (21:02)
--- NOTE | 2022-08-25 21:31 | NUR ---
REC'D PT FROM CHAPITO VALDES TO ASSUME PLAN OF CARE. PT'S ORALLY INTUBATED AC/PRVC 40% FI02, 500 TV, PEEP 5 RATE OF 25. ON GLUCERNA FEEDING FORMULA AT 40CC/HR TO THE RIGHT NGT PATENT AND INTACT. ON PROPOFOL, AND FENTANYL DRIP INFUSING ON THE MANDEEP PICC AND TKO NS TO THE LAC #20G ALL IV LINES PATENT AND INTACT. BOTH SCD ON AND LEG BOOTS. NO FAMILIES PRESENT AT THE BEDSIDE. PT'S VITAL SIGNS STABLE. SR AND NO APPARENT RESP DISTRESS. SAFETY AND SKIN PROTOCOL ON PROGRESS. CONTINUE MONITOR. 2000: SHIFT ASSESSMENT DONE ORAL CARE AND SKIN CARE DONE. 2099: TURNED AND REPOSITIONED CONTINUE MONITOR.
[2022-08-26] VITALS (28 sets, daily range): BP systolic 99–135; BP diastolic 49–70
[2022-08-26 05:11] LABS: BASOPHILS # (AUTO) 0.1 K/uL (0.00-0.22); BASOPHILS % (AUTO) 0.7 % (0.0-2.0); EOSINOPHILS # (AUTO) 0.5 K/uL (0-0.4); EOSINOPHILS % (AUTO) 4.5 % (0.0-4.0); HEMATOCRIT 25.8 % (36-52); HEMOGLOBIN 8.4 g/dL (12.0-18.0); LYMPHOCYTES # (AUTO) 1.6 K/uL (2.0-11.5); LYMPHOCYTES % (AUTO) 14.9 % (20.5-51.1); MEAN CORPUSCULAR HEMOGLOBIN 27 pg (27-31); MEAN CORPUSCULAR HGB CONC 33 g/dL (33-37); MEAN CORPUSCULAR VOLUME 82.5 fL (80-94); MONOCYTES # (AUTO) 0.7 K/uL (0.8-1.0); MONOCYTES % (AUTO) 6.3 % (1.7-9.3); NEUTROPHILS # (AUTO) 7.7 K/uL (1.8-7.7); NEUTROPHILS % (AUTO) 73.6 % (42.2-75.2); PLATELET COUNT (AUTO) 331 K/uL (140-450); RED BLOOD CELL COUNT(AUTO) 3.13 MIL/uL (4.20-6.10); RED CELL DISTRIBUTION WIDTH 24.6 % (11.6-13.7); WHITE BLOOD COUNT (AUTO) 10.5 K/uL (4.8-10.8)
[2022-08-26] MEDS: BLOOD GLUCOSE MONITORING 1 DEV DEV FS SCH ×3 (05:23→17:34)
[2022-08-26] MEDS: INSULIN LISPRO SLIDING SCALE 100 UNITS/ML VIAL SUBQ PRN (05:23)
[2022-08-26] MEDS: PIPERACILLIN/TAZOBACTAM 3.375 GM in DEXTROSE 5% 50 ML IV SCH ×3 (05:24→17:35)
[2022-08-26] MEDS: PROPOFOL 1000 MG/100 ML PREMIX 100 ML IV PRN ×5 (05:27→21:25)
--- NOTE | 2022-08-26 06:23 | NUR ---
0600: no significant changes from previous shift assessment. given a bed bath, oral care, suctioned frequently and gown changed stable vital signs. jose feeding and same vent settings jose fairly. WILL ENDORSE TO AM RN TO assume plan of care.
[2022-08-26] MEDS ORDERED: VANCOMYCIN PER PHARMACY MC PRN (07:00)
--- NOTE | 2022-08-26 07:30 | NUR ---
Opening Received report on pt. Pt intubated and sedated with diprivan and fentanyl drips to PICC, no signs of pain or acute distress noted. NGT right nare with feeding at 40 ml/hr, 30 ml residual noted. Tenorio catheter draining urine to gravity. Bilateral soft wrist restraints in place for safety, skin intact.
[2022-08-26] MEDS: FUROSEMIDE 20 MG/2 ML VIAL IVP SCH ×2 (09:41→21:18)
[2022-08-26] MEDS: PANTOPRAZOLE 40 MG INJ VIAL IVP SCH ×2 (09:41→21:16)
[2022-08-26] MEDS: DOCUSATE 100 MG/10 ML UDC GT SCH ×2 (09:42→21:14)
[2022-08-26] MEDS: LACTULOSE 20 GM/30 ML UDC PO SCH ×2 (09:42→21:17)
[2022-08-26 09:56] LABS: ANION GAP 8.3 (8-16); CARBON DIOXIDE 32.1 mmol/L (21-32); CREATININE 0.9 mg/dL (0.6-1.3); POTASSIUM 3.4 mmol/L (3.5-5.1)
[2022-08-26] MEDS: VANCOMYCIN 1,500 MG in DEXTROSE 5% 500 ML IV SCH ×2 (12:55→21:15)
--- NOTE | 2022-08-26 14:00 | NUR ---
Pt on CPAP trial per MD order for exercise. Sedation placed on vacation.
--- NOTE | 2022-08-26 14:00 | NUR ---
PT PLACED ON SBT CPAP 5 PS 12 AND FIO2 45%. NURSE AWARE. ALARMS ON AND FUNCTIONING.
--- NOTE | 2022-08-26 14:45 | NUR ---
Pt noted with respiratory distress while on CPAP, placed back on ACPRVC mode by RT. Resumed sedation.
[2022-08-26] MEDS: fentaNYL citrate - 50mL vial 2.5 MG in NACL 0.9% 200 ML IV PRN (14:50)
--- NOTE | 2022-08-26 16:34 | NUR ---
08/26/22 RD FOLLOW UP COMPLETED PLEASE REFER TO NUTRITION ASSESSMENT UNDER CARE ACTIVITY FOR ESTIMATED NUTRITIONAL NEEDS. 1. CONTINUE GLUCERNA 1.2 @ 60ML/HR, FWF 150 ML Q4H PT TOLERATED. - WITH PROPOFOL AT CURRENT RATE, PROVIDES 1440 ML VOLUME, 2330 KCAL, 86 GM PROTEIN, AND 2059 ML FREE WATER DAILY MEETING 100% ESTIMATED KCAL NEEDS AND 83% ESTIMATED PROTEIN NEEDS; ADEQUATE 2. IF PROPOFOL IS DISCONTINUED, RECOMMEND INCREASING GLUCERNA 1.2 GOAL RATE TO 75 ML/HR TOLERATED -PROVIDES 1800 ML VOLUME, 2160 KCAL AND 108 GM PROTEIN DAILY MEETING 100% ESTIMATED KCAL AND PROTEIN NEEDS 3. IF EXTUBATED, RECOMMEND SWALLOW EVAL BEFORE ADVANCING DIET 4.MONITOR GI SYMPTOMS, GASTRIC RESIDUALS AND NUTRITION RELATED LAB VALUES 5. CONSULT RD PRN 6. RD TO FOLLOW-UP 2-3 DAYS, HIGH RISK REVIEWED BY DEONNA HAYDEN RD
[2022-08-26] MEDS: AZITHROMYCIN 500 MG in DEXTROSE 5% 250 ML IV SCH (18:26)
--- NOTE | 2022-08-26 19:20 | NUR ---
RECEIVED REPORT ON THIS PATIENT FROM ANDERSON URIARTE FOR CONTINUITY OF CARE. PT IS LYING SUPINE WITH HIS EYES CLOSED BUT, HE READILY OPENS HIS EYES WHEN TOUCHED. HE HAS A OGT AND IS RECEIVING GLUCERNA 1.2 AT GOAL OF 60CC/HOUR AND FREE H20 FLUSH AT 100CC. HIS RESIDUAL WAS 100 CC. PUMP TURNED OFF FOR 1 HOUR. HE' ORALLY INTUBATED WWITH VENT SETTINGS AC/VC F102 40%, TV 500, R24, AND PEEP7. HE'S TOLERATING THE SETTINGS WELL. PT IS IN LAMBERTO SIFT RESTRAINTS TO PREVENT HIS HARMING HIMSELF. HE HAS A CARTER CATH IN PLACE DRAINING A QUANTITY SUFFICIENT AT OF ELLISON YELLOW URINE. PT REMAINS SEDATED ON PROPOFOL AND FENTANYL. HE FAILED HIS WEANING TRAIL TODAY.
[2022-08-27] VITALS (31 sets, daily range): BP systolic 95–147; BP diastolic 47–95
--- NOTE | 2022-08-27 | NUR ---
BLOOD SUGAR WS 117 NO COVERAGE GIVEN. ORAL CARE GIVEN. HE HAS LESS SECRETIONS AT THIS TIME. HIS INITIAL TEMPERATURE WAS 99.3, BUT NO IT'S DOWN TO 98.8.
[2022-08-27] MEDS: BLOOD GLUCOSE MONITORING 1 DEV DEV FS SCH ×4 (00:27→18:18)
[2022-08-27] MEDS: PIPERACILLIN/TAZOBACTAM 3.375 GM in DEXTROSE 5% 50 ML IV SCH ×4 (00:28→17:11)
[2022-08-27] MEDS: PROPOFOL 1000 MG/100 ML PREMIX 100 ML IV PRN ×4 (06:26→22:45)
[2022-08-27] MEDS: fentaNYL citrate - 50mL vial 2.5 MG in NACL 0.9% 200 ML IV PRN (06:28)
--- NOTE | 2022-08-27 07:15 | NUR ---
RECEIVED PT ON PRVC 500,F25,+5, 45%. SATURATION WAS BELOW 88%, TITRATED FIO2 TO 50%. CURRENT SATURATION LOW 90S. WILL CONTINUE TO MONITOR. VENT WHEELS ARE LOCKED, PLUGGED INTO RED OUTLET, AMBUBAG AT BEDSIDE, ALARMS ARE SET AND AUDIBLE. WILL CONTINUE TO MONITOR.
--- NOTE | 2022-08-27 07:20 | NUR ---
REPORT GIVEN TO REY URIARTE FOR CONTINUITY OF CARE FOR THIS PATIENT.
[2022-08-27] MEDS: DOCUSATE 100 MG/10 ML UDC GT SCH ×2 (09:17→21:00)
[2022-08-27] MEDS: PANTOPRAZOLE 40 MG INJ VIAL IVP SCH ×2 (09:18→21:00)
[2022-08-27] MEDS: LACTULOSE 20 GM/30 ML UDC PO SCH ×2 (09:19→21:00)
[2022-08-27] MEDS: FUROSEMIDE 20 MG/2 ML VIAL IVP SCH ×2 (09:19→21:00)
[2022-08-27] MEDS: VANCOMYCIN 1,500 MG in DEXTROSE 5% 500 ML IV SCH ×2 (09:21→21:00)
--- NOTE | 2022-08-27 13:30 | NUR ---
CPAP TRIAL 06/09 STARTED. PT DOING WELL. VOLUMES ARE 550-850. WILL CONTINUE TO MONITOR.
--- NOTE | 2022-08-27 14:45 | NUR ---
PT LASTED FOR 75 MINUTES ON CPAP 06/09. VOLUME RANGE WAS 500-900. RESPIRATORY RATE FROM 25-30. NO DISTRESS NOTED. FOLLOWED COMMANDS. SATURATION 90%. BLOOD PRESSURE 139/76. PT CURRENTLY ON PREVIOUS VENT SETTING OF PRVC 500,F25,+6,50%. PT RESTING. WILL CONTINUE TO MONITOR.
[2022-08-27] MEDS: DEXMEDETOMIDINE HCL 400 MCG in NACL 0.9% 96 ML IV PRN (17:08)
[2022-08-27] MEDS: ACETAMINOPHEN 325 MG TAB PO PRN (17:15)
[2022-08-27] MEDS: AZITHROMYCIN 500 MG in DEXTROSE 5% 250 ML IV SCH (18:19)
--- NOTE | 2022-08-27 18:33 | NUR ---
RECEIVED REPORT FROM AM SHIFT. PATIENT WAS SEEN AND ASSESSED. PATIENT IS INTUBATED WITH ETT SIZE 7.5 AND SECURED WITH A BITING BLOCK ANCHOR-FAST 23cm @ TEETH. PATIENT IS ON VENTILATOR SUPPORT. VENTILATOR PLUGGED IN RED OUTLET. VENTILATOR ALARMS SET APPROPRIATELY AND AUDIBLE TO ENVIRONMENT. AMBU BAG AT BEDSIDE. HEAD OF BED GREATER THAN 30 DEGREES. NOTICED ADEQUATE BILATERAL CHEST RISE AND FALL. PATIENT IS IN NO RESPIRATORY DISTRESS AT THIS TIME. VENT SETTINGS: AC/PRVC RR 25, TARGETED Vt 500, PEEP 6, FiO2 55% WITH SPO2 OF 92%. BILATERAL BREATH SOUNDS ON AUSCULTATION; UPPER LOBES: COARSE CRACKLES LOWER LOBES: COARSE CRACKLES. SUCTION: SMALL AMOUNT OF WHITE/ YELLOW THICK SECRETIONS FROM ETT AND SMALL WHITE THIN ORALLY.
[2022-08-27] MEDS ORDERED: VANCOMYCIN 1,000 MG VIAL ONE (22:10)
[2022-08-27] MEDS ORDERED: VANCOMYCIN 500 MG VIAL ONE (22:15)
[2022-08-28] VITALS (30 sets, daily range): BP systolic 117–142; BP diastolic 68–93
[2022-08-28] MEDS: PIPERACILLIN/TAZOBACTAM 3.375 GM in DEXTROSE 5% 50 ML IV SCH ×5 (00:25→23:42)
[2022-08-28] MEDS: BLOOD GLUCOSE MONITORING 1 DEV DEV FS SCH ×5 (00:25→23:41)
[2022-08-28] MEDS: PROPOFOL 1000 MG/100 ML PREMIX 100 ML IV PRN ×3 (01:57→23:30)
[2022-08-28 05:32] LABS: BASOPHILS # (AUTO) 0.1 K/uL (0.00-0.22); BASOPHILS % (AUTO) 1.1 % (0.0-2.0); EOSINOPHILS # (AUTO) 0.3 K/uL (0-0.4); EOSINOPHILS % (AUTO) 2.8 % (0.0-4.0); HEMATOCRIT 27.7 % (36-52); LYMPHOCYTES # (AUTO) 1.5 K/uL (2.0-11.5); LYMPHOCYTES % (AUTO) 14.2 % (20.5-51.1); MEAN CORPUSCULAR HEMOGLOBIN 27 pg (27-31); MEAN CORPUSCULAR HGB CONC 32 g/dL (33-37); MEAN CORPUSCULAR VOLUME 82.2 fL (80-94); MONOCYTES # (AUTO) 0.8 K/uL (0.8-1.0); MONOCYTES % (AUTO) 7.2 % (1.7-9.3); NEUTROPHILS % (AUTO) 74.7 % (42.2-75.2); PLATELET COUNT (AUTO) 398 K/uL (140-450); RED BLOOD CELL COUNT(AUTO) 3.37 MIL/uL (4.20-6.10); RED CELL DISTRIBUTION WIDTH 24.2 % (11.6-13.7); WHITE BLOOD COUNT (AUTO) 10.7 K/uL (4.8-10.8)
[2022-08-28 06:21] LABS: CREATININE 0.9 mg/dL (0.6-1.3)
--- NOTE | 2022-08-28 07:00 | NUR ---
RECEIVED PT ON PRVC 500, F25,+6,55%. VENT WHEELS ARE LOCKED, PLUGGED INTO RED OUTLET, AMBUBAG AT BEDSIDE, ALARMS ARE SET AND AUDIBLE. SATURATION 90-91%, CLEAR BREATH SOUNDS. DAILY CPAP
--- NOTE | 2022-08-28 07:05 | NUR ---
PT WAS TITRATED DOWN PRESSOR LEONARD OVERNIGHT. LEVO IS DOWN TO 14 FROM 30 , NEOSYNEPHRINE IS OFF AND VASOPRESSIN IS ON. FI02 WENT DOWN TO 40%. PT REMAINS ANURIC AND PROPERLY SEDATED. MODERATE SECRETIONS WERE SUCTIONED EVERY OTHER 2 HOURS. AFEBRILE OVERNIGHT Addendum: 08/28/22 at 0710 by ED Agency Nurse [id number] RN DISREGARD THIS NOTE
[2022-08-28] MEDS: DEXMEDETOMIDINE HCL 400 MCG in NACL 0.9% 96 ML IV PRN ×4 (08:02→23:31)
[2022-08-28] MEDS: LACTULOSE 20 GM/30 ML UDC PO SCH ×2 (08:09→20:48)
[2022-08-28] MEDS: DOCUSATE 100 MG/10 ML UDC GT SCH ×2 (08:09→20:46)
[2022-08-28] MEDS: PANTOPRAZOLE 40 MG INJ VIAL IVP SCH ×2 (08:09→20:48)
[2022-08-28] MEDS: FUROSEMIDE 20 MG/2 ML VIAL IVP SCH (08:10)
[2022-08-28] MEDS: VANCOMYCIN 1,500 MG in DEXTROSE 5% 500 ML IV SCH ×2 (08:11→21:49)
[2022-08-28] MEDS: POTASSIUM CHLORIDE 20% 40 MEQ/15 ML UDC GT PRN (08:18)
--- NOTE | 2022-08-28 09:30 | NUR ---
CPAP TRIAL 06/09. PT FOLLOWING COMMANDS. VOLUME RANGE 280-550. SATURATION 97%. TITRATED FIO2 FROM 55% TO 50%. CLEAR BREATH SOUNDS. WILL CONTINUE TO MONITOR.
--- NOTE | 2022-08-28 15:58 | NUR ---
08/28/22 RD FOLLOW UP COMPLETED PLEASE REFER TO NUTRITION ASSESSMENT UNDER CARE ACTIVITY FOR ESTIMATED NUTRITIONAL NEEDS. 1. CONTINUE GLUCERNA 1.2 @ 60ML/HR, FWF 150 ML Q4H PT TOLERATED. - WITH PROPOFOL AT CURRENT RATE, PROVIDES 1440 ML VOLUME, 2501 KCAL, 86 GM PROTEIN, AND 2059 ML FREE WATER DAILY MEETING 100% ESTIMATED KCAL NEEDS AND 83% ESTIMATED PROTEIN NEEDS; ADEQUATE 2. IF PROPOFOL IS DISCONTINUED, RECOMMEND INCREASING GLUCERNA 1.2 GOAL RATE TO 75 ML/HR TOLERATED -PROVIDES 1800 ML VOLUME, 2160 KCAL AND 108 GM PROTEIN DAILY MEETING 100% ESTIMATED KCAL AND PROTEIN NEEDS 3. IF EXTUBATED, RECOMMEND SWALLOW EVAL BEFORE ADVANCING DIET 4.MONITOR GI SYMPTOMS, GASTRIC RESIDUALS AND NUTRITION RELATED LAB VALUES 5. CONSULT RD PRN 6. RD TO FOLLOW-UP 2-3 DAYS, HIGH RISK REVIEWED BY DEONNA HAYDEN RD
[2022-08-28] MEDS: KCL 20 MEQ/WATER INJ PREMIX 100 ML IV SCH ×3 (19:00→23:02)
--- NOTE | 2022-08-28 19:31 | NUR ---
SBAR REPORT GIVEN TO YANET RN, ALL CARES ENDORSED.
--- NOTE | 2022-08-28 20:00 | NUR ---
ASSUMED CARE OF THIS PATIENT AND ASSESSMENT DONE AND COMPLETED. SEDATED ON FENTANYL 1.5MCG,PROPOFOL 25MCG AND PRECEDEX 1.2 MCG.TEMP 101.2 STILL ON VENTILATOR WITH SETTINGS AC/PRVC 20 FIO2 55% TV 500 PEEP6.ORAL CARE AND SUCTIONING RENDERED PRN RESTRAINTS ON TO PREVENT INJURY. .ABDOMEN OBESE WITH +BS X4 QUADS WITH GLUCERNA AT 60ML HOUR AND WATER FLUSH OF 150 ML EVERY 4 HOUR CARTER DRAINING ADEQUATE AMOUNT OF URINE .PULSES PRESENT AND PALPABLE.WILL CONTINUE WITH CARE PLAN.
[2022-08-28] MEDS: fentaNYL citrate - 50mL vial 2.5 MG in NACL 0.9% 200 ML IV PRN (20:43)
[2022-08-28] MEDS: ACETAMINOPHEN 325 MG TAB PO PRN (20:57)
[2022-08-28] MEDS ORDERED: VANCOMYCIN 1,000 MG VIAL ONE (21:09)
[2022-08-28] MEDS: INSULIN LISPRO SLIDING SCALE 100 UNITS/ML VIAL SUBQ PRN (23:39)
[2022-08-29] VITALS (31 sets, daily range): BP systolic 88–136; BP diastolic 45–87
[2022-08-29] MEDS: DEXMEDETOMIDINE HCL 400 MCG in NACL 0.9% 96 ML IV PRN ×7 (02:16→23:08)
[2022-08-29] MEDS: ACETAMINOPHEN 325 MG TAB PO PRN ×2 (04:25→09:49)
[2022-08-29] MEDS: PROPOFOL 1000 MG/100 ML PREMIX 100 ML IV PRN ×4 (05:27→21:02)
[2022-08-29] MEDS: BLOOD GLUCOSE MONITORING 1 DEV DEV FS SCH ×4 (05:42→23:40)
[2022-08-29] MEDS: PIPERACILLIN/TAZOBACTAM 3.375 GM in DEXTROSE 5% 50 ML IV SCH ×4 (05:43→23:43)
--- NOTE | 2022-08-29 07:00 | NUR ---
ENDORSED TO LUCIO DAY SHIFT RN TO CONTINUE CARE.
--- NOTE | 2022-08-29 07:15 | NUR ---
RECEIVED BEDSIDE REPORT FROM PICC NURSE YANET RN. PT SEDATED. AC PRVC FIO2 55%, VT 500, RATE 20, PEEP 6. SR ON MONITOR. PICC TO MANDEEP, RUNNING PRECEDEX @ 1.2 MCG/KG/H, PROPOFOL @ 25 MCG/KG/MIN, FENTANYL @ 1.5 MCG/KG/H. NG TUBE FEEDING TO RT NARE, RUNNING GLUCERNA @ 60MLS, FWF 150ML/H Q6H. CARTER IN PLACE TO GRAVITY, URINE CLEAR AND LIGHT LUIS. SKIN INTACT. SCD IN PLACE. BILAT SOFT WRIST RESTRAINT IN PLACE, NO S/S OF INJURY. BEDREST. BED TO LOWEST POSITION, HOB ELEVATED, CALL LIGHT WITHIN REACH, WILL CONTINUE TO MONITOR.
[2022-08-29 08:19] LABS: BASOPHILS # (AUTO) 0.1 K/uL (0.00-0.22); BASOPHILS % (AUTO) 0.9 % (0.0-2.0); EOSINOPHILS # (AUTO) 0.3 K/uL (0-0.4); EOSINOPHILS % (AUTO) 2.6 % (0.0-4.0); HEMATOCRIT 28.6 % (36-52); HEMOGLOBIN 9.1 g/dL (12.0-18.0); LYMPHOCYTES # (AUTO) 2.4 K/uL (2.0-11.5); LYMPHOCYTES % (AUTO) 19.2 % (20.5-51.1); MEAN CORPUSCULAR HEMOGLOBIN 27 pg (27-31); MEAN CORPUSCULAR HGB CONC 32 g/dL (33-37); MEAN CORPUSCULAR VOLUME 84.2 fL (80-94); MONOCYTES # (AUTO) 0.8 K/uL (0.8-1.0); MONOCYTES % (AUTO) 6.6 % (1.7-9.3); NEUTROPHILS # (AUTO) 8.9 K/uL (1.8-7.7); NEUTROPHILS % (AUTO) 70.7 % (42.2-75.2); PLATELET COUNT (AUTO) 369 K/uL (140-450); RED CELL DISTRIBUTION WIDTH 23.6 % (11.6-13.7); WHITE BLOOD COUNT (AUTO) 12.6 K/uL (4.8-10.8)
[2022-08-29 08:31] LABS: ANION GAP 6.4 (8-16); CARBON DIOXIDE 30.5 mmol/L (21-32); CREATININE 1.1 mg/dL (0.6-1.3); POTASSIUM 3.9 mmol/L (3.5-5.1)
[2022-08-29 08:35] LABS: MAGNESIUM 2.1 mg/dL (1.8-2.4); PHOSPHORUS 3.6 mg/dL (2.5-4.9)
[2022-08-29] MEDS: DOCUSATE 100 MG/10 ML UDC GT SCH ×2 (08:51→20:39)
[2022-08-29] MEDS: PANTOPRAZOLE 40 MG INJ VIAL IVP SCH ×2 (08:51→20:40)
[2022-08-29] MEDS: LACTULOSE 20 GM/30 ML UDC PO SCH ×2 (08:51→20:40)
[2022-08-29] MEDS: VANCOMYCIN 1,500 MG in DEXTROSE 5% 500 ML IV SCH ×2 (08:52→21:13)
[2022-08-29] MEDS ORDERED: fentaNYL citrate 1 MG in NACL 0.9% 80 ML IV PRN ×3 (09:40→09:55)
--- NOTE | 2022-08-29 11:00 | NUR ---
DR LINDSAY MAYSING RASHAD BEDSIDE. UPDATED PT INFORMATION.
[2022-08-29] MEDS: fentaNYL citrate - 50mL vial 2.5 MG in NACL 0.9% 200 ML IV PRN (12:47)
[2022-08-29] MEDS: INSULIN LISPRO SLIDING SCALE 100 UNITS/ML VIAL SUBQ PRN ×2 (13:09→23:42)
--- NOTE | 2022-08-29 14:50 | NUR ---
DR VELÁZQUEZ ROUNDING AT BEDSIDE. UPDATED PT INFORMATION.
--- NOTE | 2022-08-29 15:00 | NUR ---
FRIEND AT BEDSIDE. UPDATED PT INFORMATION.
--- NOTE | 2022-08-29 15:50 | NUR ---
DR BADILLO ROUNDING AT BESIDE. UPDATED PT INFORMATION.
--- NOTE | 2022-08-29 18:16 | NUR ---
FRIEND/RANDAL AT BEDSIDE. UPDATED PT INFORMATION.
--- NOTE | 2022-08-29 19:22 | NUR ---
ENDORSED TO DENITRATOR OPERATOR YANET RN FOR CONTINUITY OF CARE. ALL QUESTIONS ANSWERED.
--- NOTE | 2022-08-29 20:00 | NUR ---
RECEIVED PATIENT SEDATED ON PROPOFOL 30MCG,FENTANYL 1.5 MCG AND PRECEDX 1MCG..AFEBRILE.ASYMPPTOMATIC OF PAIN AND DISCOMFORT. SR ON THE MONITOR.ON VENT SETTINGS AC/PRVC 20 TV 500 FIO2 55% PEEP 6.,O2SATt AT 98%. LUNG SOUNDS WITH RHONCHI IN ALL LOBES.SR ON THE MONITOR ,NO ECTOPY.ABDOMEN OBESE WITH + BS X4 QUADS.GLUCERNA INFUSING AT 60ML/HOUR.AND WATER FLUSH OF 150 ML EVERY [address] ,PATENT AND INTACT DRAINING ADEQUATE AMOUNT OF URINE.PULSES PRESENT AND PALPABLE. RESTRAINTS STILL ON TO PREVENT FROM PULLING OUT VITAL LINES.WILL CONTINUE TO PROCEED WITH CARE PLAN.
[2022-08-29] MEDS ORDERED: VANCOMYCIN 1,000 MG VIAL ONE (21:07)
[2022-08-29] MEDS ORDERED: VANCOMYCIN 500 MG VIAL ONE (21:08)
[2022-08-29] MEDS ORDERED: DEXMEDETOMIDINE HCL 100 MCG/ML 2 ML VIAL IV ONE (22:10)
[2022-08-30] VITALS (31 sets, daily range): BP systolic 76–130; BP diastolic 37–86
[2022-08-30] MEDS: fentaNYL citrate - 50mL vial 2.5 MG in NACL 0.9% 200 ML IV PRN ×2 (01:40→18:31)
[2022-08-30] MEDS: PROPOFOL 1000 MG/100 ML PREMIX 100 ML IV PRN ×4 (02:32→19:17)
[2022-08-30] MEDS ORDERED: NOREPINEPHRINE 4 MG/4 ML VIAL IV ONE (02:50)
[2022-08-30] MEDS: NOREPINEPHRINE 8 MG in DEXTROSE 5% 250 ML IV PRN (03:13)
[2022-08-30] MEDS: BLOOD GLUCOSE MONITORING 1 DEV DEV FS SCH ×4 (05:44→22:21)
[2022-08-30] MEDS: PIPERACILLIN/TAZOBACTAM 3.375 GM in DEXTROSE 5% 50 ML IV SCH ×3 (05:45→17:57)
--- NOTE | 2022-08-30 07:00 | NUR ---
ENDORSED TO DAY SHIFT CHAPITO VALDES FOR CONTINUITY OF CARE.
--- NOTE | 2022-08-30 07:15 | NUR ---
RECEIVED BEDSIDE REPORT FROM DIGITAL ADVERTISING ANALYST YANET RN. PT SEDATED. AC PRVC FIO2 50%, VT 500, RATE 20, PEEP 6. SR ON MONITOR. PICC TO MANDEEP, RUNNING PRECEDEX @ 0.1 MCG/KG/H, PROPOFOL @ 30 MCG/KG/MIN, FENTANYL @ 1.5 MCG/KG/H, LEVOPHED @5 MCG/MIN. NG TUBE FEEDING TO RT NARE, RUNNING GLUCERNA @ 60MLS, FWF 150ML/H Q6H. CARTER IN PLACE TO GRAVITY, URINE CLEAR AND YELLOW. SKIN INTACT. SCD IN PLACE. BILAT SOFT WRIST RESTRAINT IN PLACE, NO S/S OF INJURY. BEDREST. BED TO LOWEST POSITION, HOB ELEVATED, CALL LIGHT WITHIN REACH, WILL CONTINUE TO MONITOR.
[2022-08-30] MEDS: PANTOPRAZOLE 40 MG INJ VIAL IVP SCH ×2 (08:21→22:00)
[2022-08-30] MEDS: DOCUSATE 100 MG/10 ML UDC GT SCH (08:21)
[2022-08-30] MEDS: LACTULOSE 20 GM/30 ML UDC PO SCH ×2 (08:21→22:00)
[2022-08-30] MEDS: VANCOMYCIN 1,500 MG in DEXTROSE 5% 500 ML IV SCH ×2 (08:23→22:02)
[2022-08-30 09:39] LABS: BASOPHILS # (AUTO) 0.1 K/uL (0.00-0.22); BASOPHILS % (AUTO) 0.9 % (0.0-2.0); EOSINOPHILS # (AUTO) 0.3 K/uL (0-0.4); MONOCYTES # (AUTO) 0.9 K/uL (0.8-1.0)
[2022-08-30 09:41] LABS: EOSINOPHILS % (AUTO) 2.4 % (0.0-4.0); HEMATOCRIT 28.4 % (36-52); HEMOGLOBIN 8.9 g/dL (12.0-18.0); LYMPHOCYTES # (AUTO) 1.7 K/uL (2.0-11.5); LYMPHOCYTES % (AUTO) 13.3 % (20.5-51.1); MEAN CORPUSCULAR HEMOGLOBIN 26 pg (27-31); MEAN CORPUSCULAR HGB CONC 31 g/dL (33-37); MEAN CORPUSCULAR VOLUME 83.1 fL (80-94); MONOCYTES % (AUTO) 6.7 % (1.7-9.3); NEUTROPHILS # (AUTO) 9.9 K/uL (1.8-7.7); NEUTROPHILS % (AUTO) 76.7 % (42.2-75.2); PLATELET COUNT (AUTO) 359 K/uL (140-450); RED BLOOD CELL COUNT(AUTO) 3.42 MIL/uL (4.20-6.10); RED CELL DISTRIBUTION WIDTH 22.9 % (11.6-13.7)
[2022-08-30 09:51] LABS: ANION GAP 6.7 (8-16); CARBON DIOXIDE 30.8 mmol/L (21-32); POTASSIUM 3.5 mmol/L (3.5-5.1)
[2022-08-30 10:02] LABS: MAGNESIUM 2.1 mg/dL (1.8-2.4); PHOSPHORUS 3.4 mg/dL (2.5-4.9)
--- NOTE | 2022-08-30 10:25 | NUR ---
DR MELENDEZ ROUNDFRED AT BEDSIDE. UPDATED PT INFORMATION.
--- NOTE | 2022-08-30 11:15 | NUR ---
DR VELÁZQUEZ ROUNDING AT BEDSIDE. UPDATED PT INFORMATION.
--- NOTE | 2022-08-30 11:27 | NUR ---
FRIEND/GIANLUCA AT BEDSIDE. UPDATED PT INFORMATION.
[2022-08-30] MEDS: INSULIN LISPRO SLIDING SCALE 100 UNITS/ML VIAL SUBQ PRN (11:41)
--- NOTE | 2022-08-30 13:00 | NUR ---
DR LINDSAY WALKER AT BEDSIDE. UPDATED PT INFORMATION.
--- NOTE | 2022-08-30 14:00 | NUR ---
PT TRANSFERRED TO CT WITH RT HELP. PT TOLERATED WELL. VS STABLE.
[2022-08-30] MEDS: DEXMEDETOMIDINE HCL 400 MCG in NACL 0.9% 96 ML IV PRN (16:57)
--- NOTE | 2022-08-30 19:17 | NUR ---
ENDORSED TO ONLINE CONTENT COORDINATOR RN FOR CONTINUITY OF CARE. ALL QUESTION ANSWERED.
--- NOTE | 2022-08-30 19:40 | NUR ---
PEEP DROPPED FROM +6 TO +5 AND FIO2 TITRATED TO 30%. PT BENNIE WELL. RN AWARE
[2022-08-31] VITALS (29 sets, daily range): BP systolic 89–132; BP diastolic 40–86
[2022-08-31] MEDS: PIPERACILLIN/TAZOBACTAM 3.375 GM in DEXTROSE 5% 50 ML IV SCH ×5 (00:16→23:44)
[2022-08-31] MEDS: PROPOFOL 1000 MG/100 ML PREMIX 100 ML IV PRN ×5 (00:28→22:28)
[2022-08-31] MEDS ORDERED: NOREPINEPHRINE 4 MG/4 ML VIAL IV ONE (05:08)
[2022-08-31] MEDS: NOREPINEPHRINE 8 MG in DEXTROSE 5% 250 ML IV PRN ×2 (05:23→19:18)
[2022-08-31] MEDS: BLOOD GLUCOSE MONITORING 1 DEV DEV FS SCH ×4 (05:39→23:43)
--- NOTE | 2022-08-31 07:35 | NUR ---
Received report on pt. Pt intubated, awake, and lightly sedated with diprivan, fentanyl, precedex drips, no acute distress noted. Pt also on levophed drip to right PICC. NGT with tube feeding. Coby in place draining urine to gravity. Addendum: 08/31/22 at 1010 by Agency 09 CHAPITO URIARTE Bilateral soft wrist restraints in place for safety.
[2022-08-31] MEDS: fentaNYL citrate - 50mL vial 2.5 MG in NACL 0.9% 200 ML IV PRN (08:15)
--- NOTE | 2022-08-31 08:20 | NUR ---
PATIENT HAD STABLE NIGHT. AFBRILE, CONTINUE DRIPS. NG TUBE FEEDING WAS ON HOLD FOR RESIDUKE OVER 200ML, RESUMED FEED AT 0600, BLOOD SUGAR WAS 103MG/DL IN AM. HAD ONCE LOOSE STOOL. CONTINUE PLAN OF CARE.
[2022-08-31] MEDS: VANCOMYCIN 1,500 MG in DEXTROSE 5% 500 ML IV SCH ×2 (09:01→21:38)
[2022-08-31] MEDS: PANTOPRAZOLE 40 MG INJ VIAL IVP SCH ×2 (09:01→21:32)
[2022-08-31] MEDS: LACTULOSE 20 GM/30 ML UDC PO SCH ×2 (09:02→21:30)
--- NOTE | 2022-08-31 09:52 | NUR ---
Dr. Nair rounding on pt. New orders made
--- NOTE | 2022-08-31 10:30 | NUR ---
Attempted sedation vacation for 15-20 mins and CPAP trial, pt unable to tolerate well d/t agitation and SOB.
[2022-08-31] MEDS: DEXMEDETOMIDINE HCL 400 MCG in NACL 0.9% 96 ML IV PRN (10:57)
[2022-08-31 13:28] LABS: ANION GAP 7.3 (8-16); CREATININE 0.9 mg/dL (0.6-1.3); POTASSIUM 3.3 mmol/L (3.5-5.1)
[2022-08-31] MEDS: POTASSIUM CHLORIDE 20% 40 MEQ/15 ML UDC GT PRN (14:37)
--- NOTE | 2022-08-31 15:00 | NUR ---
Pt family member contact updated on facesheet with pt's brother, Sergio GarciaTamarEze. Per brother, pt's spouse and most of family out of the country.
--- NOTE | 2022-08-31 19:16 | NUR ---
No other acute events during shift, endorsed plan of care to RN
--- NOTE | 2022-08-31 20:48 | NUR ---
RECEIVED REPORT FROM DAY SHIFT RN. PATIENT IS ROBLES WITH VENT AND VASOPROSSORS. HIS PRIOPFOR RATE AT 30MCG, fENTANYL 1,5MCG, PRECEDEX 0.2MCG, LEVOPHED 10MCG/MIN, OG TUBE FEEDING AT 60ML/HR, FWF 150 Q 6 HOURS. PATIENT APEARS CONFORTABAL WITH CURRENT SETTING, VENT SETTING PER RT.
[2022-08-31] MEDS: QUEtiapine FUMARATE 25 MG TAB PO SCH (21:36)
[2022-08-31] MEDS: INSULIN LISPRO SLIDING SCALE 100 UNITS/ML VIAL SUBQ PRN (23:47)
[2022-09-01] VITALS (27 sets, daily range): BP systolic 99–146; BP diastolic 55–93
[2022-09-01] MEDS: PROPOFOL 1000 MG/100 ML PREMIX 100 ML IV PRN ×3 (02:10→20:56)
[2022-09-01] MEDS ORDERED: NOREPINEPHRINE 4 MG/4 ML VIAL IV ONE (05:13)
[2022-09-01 05:33] LABS: BASOPHILS # (AUTO) 0.3 K/uL (0.00-0.22); BASOPHILS % (AUTO) 3.4 % (0.0-2.0); EOSINOPHILS # (AUTO) 0.3 K/uL (0-0.4); EOSINOPHILS % (AUTO) 3.5 % (0.0-4.0); HEMATOCRIT 26.9 % (36-52); HEMOGLOBIN 8.5 g/dL (12.0-18.0); LYMPHOCYTES # (AUTO) 1.6 K/uL (2.0-11.5); LYMPHOCYTES % (AUTO) 17.2 % (20.5-51.1); MEAN CORPUSCULAR HEMOGLOBIN 27 pg (27-31); MEAN CORPUSCULAR HGB CONC 32 g/dL (33-37); MEAN CORPUSCULAR VOLUME 83.6 fL (80-94); MONOCYTES # (AUTO) 0.9 K/uL (0.8-1.0); MONOCYTES % (AUTO) 9.8 % (1.7-9.3); NEUTROPHILS # (AUTO) 6.1 K/uL (1.8-7.7); NEUTROPHILS % (AUTO) 66.1 % (42.2-75.2); PLATELET COUNT (AUTO) 333 K/uL (140-450); RED BLOOD CELL COUNT(AUTO) 3.22 MIL/uL (4.20-6.10); RED CELL DISTRIBUTION WIDTH 23.9 % (11.6-13.7); WHITE BLOOD COUNT (AUTO) 9.2 K/uL (4.8-10.8)
[2022-09-01] MEDS: PIPERACILLIN/TAZOBACTAM 3.375 GM in DEXTROSE 5% 50 ML IV SCH ×2 (05:34→12:00)
[2022-09-01] MEDS: BLOOD GLUCOSE MONITORING 1 DEV DEV FS SCH ×3 (05:35→17:51)
[2022-09-01] MEDS: DEXMEDETOMIDINE HCL 400 MCG in NACL 0.9% 96 ML IV PRN ×4 (05:43→20:09)
[2022-09-01 06:35] LABS: CARBON DIOXIDE 30.2 mmol/L (21-32); CREATININE 0.9 mg/dL (0.6-1.3); POTASSIUM 3.2 mmol/L (3.5-5.1)
--- NOTE | 2022-09-01 07:26 | NUR ---
PATIENT HAD ONE EPISODE OF TACHYCARDIA, HR INCREASED TO 130-140S, INCREASED LEVOPHED TO 12MCG, AND THEM TO 14MCG, HIS BP BP TURN TO NORMAL, HIS HR REMIANS 100-110S. GREAT URINE OUT PUT, TOTAL 5610 IN 24 HOUR. CONTINUE TO MONITOR.
--- NOTE | 2022-09-01 07:28 | NUR ---
SBAR REPORT RECEIVED FROM HERNAN RN, ALL CARES ASSUMED. PT RESTING IN BED WITH EYES CLOSED. PT INTUBATED, SEDATED. ETT TO VENT AC/PRVC 20, 500, 30%, 5. PROPOFOL 30MCG/MIN; FENTANYL 1.5MCG/MIN; LEVOPHED 14MCG/MIN; PRECEDEX 0.2 MCG/KG/HR; DRIPS INFUSING TO MANDEEP PICC. CARTER CATHETER DRAINING CLEAR, YELLOW URINE. TUBE FEEDING INFUSING TO OGT. BED IN LOW AND LOCKED POSITION.
[2022-09-01] MEDS: LACTULOSE 20 GM/30 ML UDC PO SCH ×2 (08:08→21:00)
[2022-09-01] MEDS: QUEtiapine FUMARATE 25 MG TAB PO SCH ×2 (08:08→21:03)
[2022-09-01] MEDS: PANTOPRAZOLE 40 MG INJ VIAL IVP SCH ×2 (08:08→21:01)
[2022-09-01] MEDS: VANCOMYCIN 1,500 MG in DEXTROSE 5% 500 ML IV SCH (08:12)
[2022-09-01] MEDS: ACETAMINOPHEN 325 MG TAB PO PRN ×2 (10:00→17:53)
[2022-09-01] MEDS ORDERED: FUROSEMIDE 20 MG/2 ML VIAL IVP SCH (13:30)
--- NOTE | 2022-09-01 19:30 | NUR ---
SBAR REPORT GIVEN TO ANGELLA URIARTE, ALL CARES ENDORSED.
--- NOTE | 2022-09-01 19:35 | NUR ---
TRANSFER OF CARE FROM DAY SHIFT, REPORT RECEIVED FROM LIDIA Pichardo RN. PATIENT RECEIVED INTUBATED AND SEDATED, DOES NOT APPEAR TO BE IN DISTRESS. PATIENT IS ETT TO VENT WITH THE CURRENT SETTINGS: AC/PRVC, FIO2 = 30%, VT = 500, RATE = 20, PEEP = 5. PATIENT HAS NG TUBE TO RIGHT NARE AND IS RECIEVING TUBE FEEDING: GLUCERNA 1.2 @ 60ML/HR WITH H20 FLUSH OF 150ML Q6 HRS. PATIENT HAS THE FOLLOWING MEDICATIONS INFUSING: FENTANYL 2500MCG @ 1.5MCG/HR, PRECEDEX 400MCG @ 0.6MG/KG/HR, PROPOFOL 1000MG @ 30MCG/KG/MIN, AND LEVOPHED 8MG @ 2MCG/MIN. PATIENT HAS PICC LINE IN THE MANDEEPEMMA IN PLACE. WILL CONTINUE TO MONITOR PATIENT FOR ANY CHANGES IN CONDITION.
[2022-09-02] VITALS (30 sets, daily range): BP systolic 83–159; BP diastolic 41–142
[2022-09-02] MEDS: BLOOD GLUCOSE MONITORING 1 DEV DEV FS SCH ×5 (00:46→23:56)
[2022-09-02] MEDS: ACETAMINOPHEN 325 MG TAB PO PRN ×2 (01:17→08:26)
[2022-09-02] MEDS: DEXMEDETOMIDINE HCL 400 MCG in NACL 0.9% 96 ML IV PRN ×5 (01:59→23:46)
[2022-09-02] MEDS: PROPOFOL 1000 MG/100 ML PREMIX 100 ML IV PRN ×5 (02:02→23:50)
[2022-09-02] MEDS: NOREPINEPHRINE 8 MG in DEXTROSE 5% 250 ML IV PRN (04:52)
--- NOTE | 2022-09-02 05:10 | NUR ---
RT AT BEDSIDE, FIO2 TITRATED TO 38%
[2022-09-02 05:53] LABS: BASOPHILS # (AUTO) 0.3 K/uL (0.00-0.22); BASOPHILS % (AUTO) 3.3 % (0.0-2.0); EOSINOPHILS # (AUTO) 0.4 K/uL (0-0.4); EOSINOPHILS % (AUTO) 4.2 % (0.0-4.0); HEMOGLOBIN 8.6 g/dL (12.0-18.0); LYMPHOCYTES # (AUTO) 2.1 K/uL (2.0-11.5); LYMPHOCYTES % (AUTO) 24.4 % (20.5-51.1); MEAN CORPUSCULAR HEMOGLOBIN 27 pg (27-31); MEAN CORPUSCULAR HGB CONC 32 g/dL (33-37); MEAN CORPUSCULAR VOLUME 84.3 fL (80-94); MONOCYTES # (AUTO) 0.9 K/uL (0.8-1.0); MONOCYTES % (AUTO) 9.9 % (1.7-9.3); NEUTROPHILS % (AUTO) 58.2 % (42.2-75.2); PLATELET COUNT (AUTO) 303 K/uL (140-450); RED CELL DISTRIBUTION WIDTH 24.1 % (11.6-13.7); WHITE BLOOD COUNT (AUTO) 8.6 K/uL (4.8-10.8)
[2022-09-02 06:06] LABS: ANION GAP 8.2 (8-16); CARBON DIOXIDE 30.3 mmol/L (21-32); CREATININE 0.9 mg/dL (0.6-1.3); POTASSIUM 3.5 mmol/L (3.5-5.1)
--- NOTE | 2022-09-02 07:20 | NUR ---
TRANSFER OF CARE TO [facility], REPORT ENDORSED TO LIDIA Pichardo RN
[2022-09-02] MEDS: QUEtiapine FUMARATE 25 MG TAB PO SCH ×2 (08:07→20:40)
[2022-09-02] MEDS: PANTOPRAZOLE 40 MG INJ VIAL IVP SCH ×2 (08:07→20:40)
[2022-09-02] MEDS: LACTULOSE 20 GM/30 ML UDC PO SCH (08:07)
--- NOTE | 2022-09-02 19:15 | NUR ---
TRANSFER OF CARE FROM DAY SHIFT, REPORT RECEIVED FROM LIDIA Pichardo RN. PATIENT RECEIVED INTUBATED AND SEDATED, DOES NOT APPEAR TO BE IN DISTRESS. PATIENT IS ETT TO VENT WITH THE CURRENT SETTINGS: AC/PRVC, FIO2 = 35%, VT = 500, RATE = 20, PEEP = 5. PATIENT HAS NG TUBE TO RIGHT NARE AND IS RECIEVING TUBE FEEDING: GLUCERNA 1.2 @ 60ML/HR WITH H20 FLUSH OF 150ML Q6 HRS. PATIENT HAS THE FOLLOWING MEDICATIONS INFUSING: FENTANYL 2500MCG @ 0.5MCG/HR, PRECEDEX 400MCG @ 1MG/KG/HR, PROPOFOL 1000MG @ 25MCG/KG/MIN, PATIENT HAS PICC LINE IN THE EMMA KAUFMAN IN PLACE. WILL CONTINUE TO MONITOR PATIENT FOR ANY CHANGES IN CONDITION Addendum: 09/03/22 at 0504 by Laila Santa RN VITALS AT START OF SHIFT: HR = 71, O2 SAT = 89%, R = 20, BP = 142/86, TEMP = 98.7
--- NOTE | 2022-09-02 19:31 | NUR ---
RECEIVED REPORT FROM AM SHIFT. PATIENT WAS SEEN AND ASSESSED. PATIENT IS INTUBATED WITH ETT SIZE 7.5 AND SECURED WITH A BITING BLOCK ANCHOR-FAST 23cm @ TEETH. PATIENT IS ON VENTILATOR SUPPORT. VENTILATOR PLUGGED IN RED OUTLET. VENTILATOR ALARMS SET APPROPRIATELY AND AUDIBLE TO ENVIRONMENT. AMBU BAG AT BEDSIDE. HEAD OF BED GREATER THAN 30 DEGREES. NOTICED ADEQUATE BILATERAL CHEST RISE AND FALL. PATIENT IS IN NO RESPIRATORY DISTRESS AT THIS TIME. VENT SETTINGS: AC/PRVC RR 20, TARGETED Vt 500, PEEP 5, FiO2 35% WITH SPO2 OF 92%. BILATERAL BREATH SOUNDS ON AUSCULTATION; UPPER LOBES: COARSE CRACKLES LOWER LOBES: COARSE CRACKLES. SUCTION: SMALL AMOUNT OF WHITE THICK SECRETIONS FROM ETT AND SMALL WHITE THIN ORALLY.
[2022-09-02] MEDS: fentaNYL citrate - 50mL vial 2.5 MG in NACL 0.9% 200 ML IV PRN (21:25)
--- NOTE | 2022-09-02 23:45 | NUR ---
AT BEDSIDE PT DESATURATING, TITRATED FiO2 FROM 35% TO 45%. RN NOTIFIED. SPO2 92%.
[2022-09-03] VITALS (24 sets, daily range): BP systolic 89–145; BP diastolic 45–95
[2022-09-03] MEDS: DEXMEDETOMIDINE HCL 400 MCG in NACL 0.9% 96 ML IV PRN ×3 (02:48→10:33)
[2022-09-03] MEDS: PROPOFOL 1000 MG/100 ML PREMIX 100 ML IV PRN ×2 (05:15→10:42)
[2022-09-03 05:17] LABS: BASOPHILS # (AUTO) 0.1 K/uL (0.00-0.22); BASOPHILS % (AUTO) 1.1 % (0.0-2.0); EOSINOPHILS # (AUTO) 0.6 K/uL (0-0.4); EOSINOPHILS % (AUTO) 6.6 % (0.0-4.0); HEMATOCRIT 26.7 % (36-52); HEMOGLOBIN 8.6 g/dL (12.0-18.0); LYMPHOCYTES # (AUTO) 2.3 K/uL (2.0-11.5); LYMPHOCYTES % (AUTO) 24.1 % (20.5-51.1); MEAN CORPUSCULAR HEMOGLOBIN 27 pg (27-31); MEAN CORPUSCULAR HGB CONC 32 g/dL (33-37); MONOCYTES # (AUTO) 0.8 K/uL (0.8-1.0); MONOCYTES % (AUTO) 8.7 % (1.7-9.3); NEUTROPHILS # (AUTO) 5.6 K/uL (1.8-7.7); NEUTROPHILS % (AUTO) 59.5 % (42.2-75.2); PLATELET COUNT (AUTO) 320 K/uL (140-450); RED BLOOD CELL COUNT(AUTO) 3.14 MIL/uL (4.20-6.10); RED CELL DISTRIBUTION WIDTH 24.5 % (11.6-13.7); WHITE BLOOD COUNT (AUTO) 9.4 K/uL (4.8-10.8)
[2022-09-03] MEDS: BLOOD GLUCOSE MONITORING 1 DEV DEV FS SCH ×3 (05:26→17:50)
[2022-09-03 05:38] LABS: ANION GAP 8.3 (8-16); CARBON DIOXIDE 29.3 mmol/L (21-32); POTASSIUM 3.6 mmol/L (3.5-5.1)
--- NOTE | 2022-09-03 07:14 | NUR ---
TRANSFER OF CARE TO [facility], REPORT ENDORSED TO LUCIO Galeas RN
--- NOTE | 2022-09-03 07:15 | NUR ---
RECEIVED BEDSIDE REPORT FROM MILEAGE CLERK ANGELLA URIARTE. PT SEDATED. ETT TO VENT, AC PRVC FIO2 45%, VT 500, RATE 20, PEEP 5. SR ON MONITOR. PICC TO MANDEEP, RUNNING PRECEDEX @ 1 MCG/KG/H, PROPOFOL @ 35 MCG/KG/MIN, FENTANYL @ 0.5 MCG/KG/H. NG TUBE FEEDING TO RT NARE, RUNNING GLUCERNA @ 60MLS, FWF 150ML/H Q6H. CARTER IN PLACE TO GRAVITY, URINE CLEAR AND YELLOW. SKIN INTACT. SCD IN PLACE. BILAT SOFT WRIST RESTRAINT IN PLACE, NO S/S OF INJURY. BEDREST. BED TO LOWEST POSITION, HOB ELEVATED, CALL LIGHT WITHIN REACH, WILL CONTINUE TO MONITOR.
[2022-09-03] MEDS: PANTOPRAZOLE 40 MG INJ VIAL IVP SCH ×2 (08:23→20:42)
[2022-09-03] MEDS: QUEtiapine FUMARATE 25 MG TAB PO SCH ×2 (08:23→20:41)
[2022-09-03] MEDS: ACETAMINOPHEN 325 MG TAB PO PRN (08:32)
--- NOTE | 2022-09-03 09:10 | NUR ---
DR ARMSTRONG ROUNDING AT BEDSIDE. UPDATED PT INFORMATION.
--- NOTE | 2022-09-03 11:06 | NUR ---
DR STEPHANIE AGUSTIN AT BEDSIDE. UPDATED PT INFORMATION.
[2022-09-03] MEDS: FUROSEMIDE 20 MG/2 ML VIAL IVP SCH (12:01)
--- NOTE | 2022-09-03 12:11 | NUR ---
DR NARAYANAN ROUNDING AT BEDSIDE. UPDATED PT INFORMATION. ORDER ABGS FOR EXTUBATION IF IT IS OK. RT MADE AWARE.
--- NOTE | 2022-09-03 12:37 | NUR ---
PT PLACED ON CPAP AT 1115, NO DISTRESS NOTED, RN NOTIFIED. VENT ALARMS SET AND AUDIBLE TO NURSE STATION, WHEELS ON VENT ARE LOCKED AND VENT IS PLUGGED INTO RED OUTLET. AMBU BAG IS AT BEDSIDE. WILL CONTINUE TO MONITOR PT. WILL CONTINUE WEANING TRIALS PER MD NARAYANAN.
--- NOTE | 2022-09-03 14:05 | NUR ---
PT EXTUBATED VIA RT PER DR ORACIO MINA. ORDERED SWALLOW EVAL ON 09/04/22 1355. Addendum: 09/03/22 at 1436 by Kelsey Serrano RN PT ON 10L COOL MIST, NO S/S OF ACUTE RESP DISTRESS.
--- NOTE | 2022-09-03 14:46 | NUR ---
09/03/22 FOLLOW UP COMPLETED PLEASE REFER TO NUTRITION ASSESSMENT UNDER CARE ACTIVITY FOR ESTIMATED NUTRITIONAL NEEDS. 1. CONTINUE GLUCERNA 1.2 @ 60ML/HR, FWF 150 ML Q4H PT TOLERATED. - WITH PROPOFOL AT CURRENT RATE, PROVIDES 1440 ML VOLUME, 2330 KCAL, 86 GM PROTEIN, AND 2059 ML FREE WATER DAILY MEETING 100% ESTIMATED KCAL NEEDS AND 83% ESTIMATED PROTEIN NEEDS; ADEQUATE 2. IF PROPOFOL IS DISCONTINUED, RECOMMEND INCREASING GLUCERNA 1.2 GOAL RATE TO 75 ML/HR TOLERATED -PROVIDES 1800 ML VOLUME, 2160 KCAL AND 108 GM PROTEIN DAILY MEETING 100% ESTIMATED KCAL AND PROTEIN NEEDS 3. IF EXTUBATED, RECOMMEND SWALLOW EVAL BEFORE ADVANCING DIET 4. MONITOR GI SYMPTOMS, GASTRIC RESIDUALS AND NUTRITION RELATED LAB VALUES 5. CONSULT RD PRN 6. RD TO FOLLOW-UP 2-3 DAYS, HIGH RISK REVIEWED BY DEONNA HAYDEN RD
[2022-09-03] MEDS ORDERED: MORPHINE SULFATE 2 MG/ML SYR IVP PRN (16:40)
--- NOTE | 2022-09-03 18:16 | NUR ---
DR BADILLO ROUNDING AT BEDSIDE. UPDATED PT INFORMATION. NO NEW ORDER.
--- NOTE | 2022-09-03 19:14 | NUR ---
ENDORSED TO TITLE 1 TUTOR ANGELLA URIARTE FOR CONTINUITY OF CARE. ALL QUESTION ANSWERED.
--- NOTE | 2022-09-03 19:20 | NUR ---
TRANSFER OF CARE FROM DAY SHIFT, REPORT RECEIVED FROM LUCIO Galeas RN. PATIENT RECEIVED AWAKE, ALERT, AND SITTING UP IN BED. CURRENTLY ON COOL AEROSOL MASK AT 7L. PATIENT IS CURRENLTY NPO AND PENDING SWALLOW EVAL WHICH IS SCHEDULED FOR 09/04/2022. [facility] WILL CONTINUE TO MONITOR PATIENT FOR ANY CHANGES IN CONDITION Addendum: 09/04/22 at 0649 by Laila Santa RN VITALS AT START OF SHIFT: TEMP = 97.4F, HR = 110, O2 SAT = 96%, R = 30, BP = 126/85
--- NOTE | 2022-09-03 20:40 | NUR ---
PATIENT ASKING FOR WATER, PROVIDED PATIENT WITH NECTAR THICKENED WATER TO MONITOR FOR ANY SIGN OF ASPIRATION OR INTOLERANCE WITH INTAKE. PATIENT WAS ABLE TO SWALLOW WITHOUT ANY DIFFICULTY. WILL PROVIDE PATIENT WITH ICE CHIPS
[2022-09-04] VITALS (12 sets, daily range): BP systolic 80–157; BP diastolic 52–97
[2022-09-04 05:14] LABS: BASOPHILS # (AUTO) 0.4 K/uL (0.00-0.22); BASOPHILS % (AUTO) 4.1 % (0.0-2.0); EOSINOPHILS # (AUTO) 0.2 K/uL (0-0.4); EOSINOPHILS % (AUTO) 2.1 % (0.0-4.0); HEMATOCRIT 25.5 % (36-52); HEMOGLOBIN 8.4 g/dL (12.0-18.0); LYMPHOCYTES # (AUTO) 1.5 K/uL (2.0-11.5); LYMPHOCYTES % (AUTO) 15.2 % (20.5-51.1); MEAN CORPUSCULAR HEMOGLOBIN 28 pg (27-31); MEAN CORPUSCULAR HGB CONC 33 g/dL (33-37); MEAN CORPUSCULAR VOLUME 84.3 fL (80-94); MONOCYTES # (AUTO) 0.8 K/uL (0.8-1.0); MONOCYTES % (AUTO) 8.7 % (1.7-9.3); NEUTROPHILS # (AUTO) 6.8 K/uL (1.8-7.7); NEUTROPHILS % (AUTO) 69.9 % (42.2-75.2); PLATELET COUNT (AUTO) 316 K/uL (140-450); RED BLOOD CELL COUNT(AUTO) 3.03 MIL/uL (4.20-6.10); RED CELL DISTRIBUTION WIDTH 24.5 % (11.6-13.7); WHITE BLOOD COUNT (AUTO) 9.7 K/uL (4.8-10.8)
[2022-09-04 06:05] LABS: ANION GAP 9.9 (8-16); CARBON DIOXIDE 29.3 mmol/L (21-32); POTASSIUM 3.2 mmol/L (3.5-5.1)
[2022-09-04] MEDS: BLOOD GLUCOSE MONITORING 1 DEV DEV FS SCH ×4 (06:48→17:39)
[2022-09-04] MEDS: POTASSIUM CHLORIDE 20% 40 MEQ/15 ML UDC GT PRN (07:02)
--- NOTE | 2022-09-04 07:03 | NUR ---
TRANSFER OF CARE TO DAY SHIFT, REPORT ENDORSED TO LUCIO Galeas RN
--- NOTE | 2022-09-04 07:15 | NUR ---
RECEIVED BEDSIDE REPORT FROM END FRAZER ANGELLA RN. PT AWAKE, SR ON MONITOR. ON 10L 40% COOL MIST. NO S/S OF ACUTE RESPIRATORY DISTRESS. PICC TO MANDEEP, CLAMPED. NPO EXCEPT MEDS, SWALLOW EVAL SCHEDULED TODAY. CARTER IN PLACE TO GRAVITY, URINE CLEAR AND YELLOW. SKIN INTACT. GENERALIZED WEAKNESS, BEDREST. BED TO LOWEST POSITION, HOB ELEVATED, CALL LIGHT WITHIN REACH, WILL CONTINUE TO MONITOR.
[2022-09-04] MEDS: FUROSEMIDE 20 MG/2 ML VIAL IVP SCH (08:03)
[2022-09-04] MEDS: PANTOPRAZOLE 40 MG INJ VIAL IVP SCH ×2 (08:03→20:54)
--- NOTE | 2022-09-04 09:10 | NUR ---
DR NATHANIEL WALKER AT BEDSIDE. UPDATED PT INFORMATION. ORDERED BREATHING TREATMENT, D/C SEROQUAL, DOWNGRADE PT TO MED SURG.
--- NOTE | 2022-09-04 09:21 | NUR ---
DR ARMSTRONG GAVE VERBAL ORDER FOR BREATHING TX ORDERED FOR PT FOR POST EXTUBATION. ORDER IS FOR ALBUTEROL 2.5MG Q6HR AND ATROVENT 0.5MG Q6HR
--- NOTE | 2022-09-04 10:08 | NUR ---
@255 DR NARAYANAN GAVE VERBAL ORDER TO TITRATE PT FROM COOL AEROSOL TO NASAL CANNULA. PER KEEP SATS >90%. PT IS ON 4L NC SATING 93% WILL TITRATE ACCORDINGLY. NO DISTRESS NOTED. WILL CONTINUE TO MONITOR.
--- NOTE | 2022-09-04 13:00 | NUR ---
DR FERNANDEZ ROUNDFRED AT BEDSIDE. UPDATED PT INFORMATION.
--- NOTE | 2022-09-04 14:10 | NUR ---
PT IS UNABLE TO BE TITRATED ON HIS OXYGEN DUE TO DESATING. PT IS REMAINING ON 4L NC FOR TODAY AND WILL TRY TO TITRATE AGAIN TOMORROW. BUBBLE HUMIDIFIER IS CONNECTED FOR COMFORT. WILL CONTINUE TO MONITOR. PT HR 102 SPO2 90%. NO DISTRESS NOTED. RN AWARE NO TITRATION WAS ABLE TO BE DONE.
--- NOTE | 2022-09-04 15:03 | NUR ---
P.T. NOTES HOLD P.T. EVAL DUE TO LOW BP; FF UP WHEN APPROPRIATE.
[2022-09-04] MEDS: ALBUTEROL 0.083% 2.5 MG/3 ML NEBU INH SCH ×2 (17:13→19:42)
[2022-09-04] MEDS: IPRATROPIUM 0.02% 0.5 MG/2.5 ML NEBU INH SCH ×2 (17:13→19:42)
--- NOTE | 2022-09-04 18:20 | NUR ---
SWALLOW EVAL PERFORMED AT BESIDE BY . PT TOLERATE WELL AND PASS THE SWALLOW EVAL. RECOMMEND MECHANICAL SOFT, THIN LIQUID DIET. DR ARMSTRONG NOTIFIED AND APPROVED THE DIET.
--- NOTE | 2022-09-04 19:30 | NUR ---
RECEIVED PATIENT ON BED; BREATHING EVEN AND UNLABORED AT 4 LITERS 02/NC. ON SINUS TACHY HR 120/MIN NO ARRHYTHMIAS SEEN. PICC LINE IN PLACE TO RIGHT UPPER ARM; INTACT.
--- NOTE | 2022-09-04 19:39 | NUR ---
PT WILL BE TRANSFERRED TO MED SURG. ENDORSED TO CRIS URIARTE FOR CONTINUITY OF CARE. ALL QUESTION ANSWERED.
--- NOTE | 2022-09-04 20:00 | NUR ---
TRANSFERRED TO MED SURG PER BED IN FAIR CONDITION; ENDORSED TO CHAPITO SHEPARD FOR CONTINUITY OF CARE.
--- NOTE | 2022-09-04 20:30 | NUR ---
RECEIVED REPORT FROM ICU NURSE FOR CONTINUITY OF CARE. PT IS STABLE AT THIS TIME, RESTING ON 4L NC. ALERT AND ORIENTED X4 SINHALA SPEAKING. PT HAS A R UPPER ARM PICC LINE. PLAN TO KEEP PT AT AN O2 SATURATION LEVEL ABOVE 92%. CALL LIGHT WITHIN REACH, BED TO LOWEST POINT. WILL MAKE FREQUENT ROUNDS THROUGHOUT SHIFT.
[2022-09-05] VITALS: BP 145/83
[2022-09-05] MEDS: IPRATROPIUM 0.02% 0.5 MG/2.5 ML NEBU INH SCH ×4 (00:42→20:05)
[2022-09-05] MEDS: ALBUTEROL 0.083% 2.5 MG/3 ML NEBU INH SCH ×4 (00:43→20:05)
--- NOTE | 2022-09-05 01:20 | NUR ---
PT SATING AT 69, RT WAS CONTACTED. BREATHING TREATMENT WAS GIVEN AND O2 WAS RAISED TO 5L THEN TITRATED BACK DOWN TO 4. PT NOW CURRENTLY SATING 93%
[2022-09-05 04:00] VITALS: BP 142/76
--- NOTE | 2022-09-05 04:00 | NUR ---
PT HAS MAINTAINED AN O2 SATURATION LEVEL OF 87-92%. WHEN PATIENT IS ASLEEP HIS O2 SAT TENDS TO DETERIORATE, ONCE WOKEN HIS SATURATION RETURNS TO WNL. WILL CONTINUE TO MONITOR
[2022-09-05] MEDS: BLOOD GLUCOSE MONITORING 1 DEV DEV FS SCH ×5 (06:07→23:50)
[2022-09-05 07:02] LABS: ANION GAP 8.8 (8-16); CARBON DIOXIDE 30.4 mmol/L (21-32); POTASSIUM 3.2 mmol/L (3.5-5.1)
[2022-09-05 07:06] LABS: HEMATOCRIT 26.3 % (36-52); HEMOGLOBIN 8.5 g/dL (12.0-18.0); MEAN CORPUSCULAR HEMOGLOBIN 28 pg (27-31); MEAN CORPUSCULAR HGB CONC 32 g/dL (33-37); MEAN CORPUSCULAR VOLUME 85.8 fL (80-94); PLATELET COUNT (AUTO) 313 K/uL (140-450); RED BLOOD CELL COUNT(AUTO) 3.07 MIL/uL (4.20-6.10); RED CELL DISTRIBUTION WIDTH 23.8 % (11.6-13.7); WHITE BLOOD COUNT (AUTO) 9.3 K/uL (4.8-10.8)
--- NOTE | 2022-09-05 07:28 | NUR ---
SATURATION 100% ON SUPPLEMENTAL OXYGEN AT 4 LPM VIA NC POST HHN THERAPY TITRATED FIO2 TO 3 LPM
--- NOTE | 2022-09-05 07:30 | NUR ---
RECEIVED REPORT FROM TIRE MAN NURSE FOR CONTINUITY OF CARE, POC DISCUSSED. PULSE OX IS READING 94%, ON 6L NC. NO S/S OF SOB OR ACUTE DISTRESS. ON TELE MONITOR. ALL SAFETY MEASURES IN PLACE, CALL LIGHT WITHIN REACH.
[2022-09-05 08:00] VITALS: BP 120/77
--- NOTE | 2022-09-05 08:42 | NUR ---
PHYSICAL THERAPY NOTE NURSING REQUEST HOLD TREATMENT AND EVAL AT THIS TIME 2/2 DESAT AND IS CURRENTLY ON BREATHING TREATMENT WITH RT. WILL FOLLOW UP NEXT VISIT AND AWAIT PT CLEANANCE. NURSING AWARE.
[2022-09-05] MEDS: FUROSEMIDE 20 MG/2 ML VIAL IVP SCH (08:52)
[2022-09-05] MEDS: PANTOPRAZOLE 40 MG INJ VIAL IVP SCH ×2 (08:52→20:49)
--- NOTE | 2022-09-05 10:27 | NUR ---
ROUNDED ON PT, ASLEEP ON HIS BACK WITH CHEST RISING AND FALLING EVEN AND UNLABORED ON 4L NC WITH NO ACUTE S/S OF DISTRESS OR SOB. ON TELE MONITOR. ALL SAFETY MEASURES IN PLACE, CALL LIGHT WITHIN REACH.
[2022-09-05 12:00] VITALS: BP 112/61
--- NOTE | 2022-09-05 12:07 | NUR ---
BLOOD GLUCOSE IS 114, NO INSULIN NEEDED AT THIS TIME.
[2022-09-05] MEDS ORDERED: POTASSIUM CHLORIDE 20% 40 MEQ/15 ML UDC PO PRN (12:30)
--- NOTE | 2022-09-05 13:42 | NUR ---
PRN POTASSIUM REPLACED
--- NOTE | 2022-09-05 13:51 | NUR ---
ENCOURAGED PATIENT FOR INTERMITTENT DEEP BREATH AND COUGH; PRODUCTIVE FOR LARGE SEMI THICK TO FROTHY YELLOW SECRETIONS AIRWAY PATENT
--- NOTE | 2022-09-05 14:38 | NUR ---
09/05/22 RD FOLLOW UP COMPLETED PLEASE REFER TO NUTRITION ASSESSMENT UNDER CARE ACTIVITY FOR ESTIMATED NUTRITIONAL NEEDS. 1. CONTINUE [id number] MECHANICAL SOFT DIET TOLERATED 2. MONITOR GI SYMPTOMS, % PO INTAKE AND NUTRITION RELATED LAB VALUES 3. RD TO FOLLOW-UP 3-5 DAYS, MODERATE RISK DEONNA HAYDEN RD
--- NOTE | 2022-09-05 15:45 | NUR ---
PT IS RESTING IN BED WITH NO ACUTE S/S OF DISTRESS. ALL SAFETY MEASURES IN PLACE, CALL LIGHT WITHIN REACH.
[2022-09-05 16:00] VITALS: BP 100/63
--- NOTE | 2022-09-05 18:35 | NUR ---
ALL NEEDS MET THROUGHOUT THE SHIFT, ALL SAFETY MEASURES IN PLACE. CALL LIGHT WITHIN REACH.
[2022-09-05 20:00] VITALS: BP 136/74
[2022-09-05] MEDS: ACETAMINOPHEN 325 MG TAB PO PRN (20:49)
[2022-09-05] MEDS ORDERED: MELATONIN 3 MG TAB PO PRN (21:10)
[2022-09-06] VITALS: BP 122/69
[2022-09-06] MEDS: ALBUTEROL 0.083% 2.5 MG/3 ML NEBU INH SCH ×4 (01:00→20:05)
[2022-09-06] MEDS: IPRATROPIUM 0.02% 0.5 MG/2.5 ML NEBU INH SCH ×4 (01:00→20:05)
[2022-09-06 04:00] VITALS: BP 121/66
[2022-09-06] MEDS: BLOOD GLUCOSE MONITORING 1 DEV DEV FS SCH ×3 (06:14→17:10)
--- NOTE | 2022-09-06 07:28 | NUR ---
RECEIVED REPORT FROM GROCERY CLERK NURSE, PT RESTING IN BED AND REMOVED HIS NASAL CANNULA, EDUCATED ON IMPORTANCE OF KEEPING IT ON. DENIES SOB AND CHEST RISING AND FALLING EVEN AND UNLABORED. ON TELE MONITOR. ALL SAFETY MEASURES IN PLACE, CALL LIGHT WITHIN REACH.
[2022-09-06 08:00] VITALS: BP 116/69
[2022-09-06] MEDS: FUROSEMIDE 20 MG/2 ML VIAL IVP SCH (08:32)
[2022-09-06] MEDS: PANTOPRAZOLE 40 MG INJ VIAL IVP SCH ×2 (08:32→20:17)
--- NOTE | 2022-09-06 08:35 | NUR ---
PATIENT WITH BREAKFAST TRAY AT THIS TIME NO DISTRESS NOTED ESTHETICIAN SPA TO ATTEMPT HHN THERAPT AT A LATER TIME
--- NOTE | 2022-09-06 09:24 | NUR ---
WALI MEDICATION ADMINISTERED PER MD ORDER, FULL ASSESSMENT COMPLETED. SEE DOCUMENTATION. PT PLACED ON BED TRAY FOR NEEDS OF A BM. NO ACUTE S/S OF DISTRESS. ALL SAFETY MEASURES IN PLACE, CALL LIGHT WITHIN REACH.
--- NOTE | 2022-09-06 09:41 | NUR ---
SMALL BM NOTED, PT CLEANED, NO S/S OF DISTRESS. ALL SAFETY MEASURES IN PLACE, CALL LIGHT WITHIN REACH.
[2022-09-06 12:00] VITALS: BP 108/74
--- NOTE | 2022-09-06 12:00 | NUR ---
BLOOD GLUCOSE IS 130, NO INSULIN COVERAGE NEEDED AT THIS TIME. NO S/S OF DISTRESS, ALL NEEDS ARE REPORTED TO BE MET. ALL SAFETY MEASURES IN PLACE, CALL LIGHT WITHIN REACH.
--- NOTE | 2022-09-06 13:24 | NUR ---
SPOKE TO PHYSICAL THERAPIST, STATED PT CAN BE SEEN TODAY DUE TO IMPROVEMENT IN STATUS. STATED SHE CAN NOT EVALUATE THE PT BUT WILL INFORM THE PRIMARY PHYSICAL THERAPIST AND WILL DO IT ON Wednesday.
--- NOTE | 2022-09-06 15:33 | NUR ---
PT IN BED, NO ACUTE S/S OF DISTRESS. RT COMPLETED BREATHING TREATMENT. REPORTS ALL NEEDS BEING MET. ALL SAFETY MEASURES IN PLACE, CALL LIGHT WITHIN REACH.
[2022-09-06 16:00] VITALS: BP 129/87
--- NOTE | 2022-09-06 18:06 | NUR ---
ALL NEEDS MET THROUGHOUT THE SHIFT, ALL QUESTIONS ANSWERED. ON TELE MONITOR. NO S/S OF DISTRESS. ALL SAFETY MEASURES IN PLACE, CALL LIGHT WITHIN REACH.
[2022-09-06 20:00] VITALS: BP 121/71
--- NOTE | 2022-09-06 20:30 | NUR ---
PT DUE MEDS ADMINISTERED, MAXIMUM ASSIST TO BEDSIDE COMMODE, BM WITH MEDIUM SOFT STOOL, ASSISTED BACK TO BED, NO SOB NOTED, ALL NEEDS ATTENDED.
[2022-09-07] VITALS: BP 116/72
--- NOTE | 2022-09-07 | NUR ---
PT SLEEPING, EASILY AROUSABLE, VITAL SIGNS STABLE, BLOOD SUGAR CHECKED WITH 114 RESULT, NO COVERAGE NEEDED, DENIES ANY PAIN, CONTINUE TO MONITOR CLOSELY.
[2022-09-07] MEDS: BLOOD GLUCOSE MONITORING 1 DEV DEV FS SCH ×3 (00:28→11:59)
[2022-09-07] MEDS: IPRATROPIUM 0.02% 0.5 MG/2.5 ML NEBU INH SCH ×2 (01:00→07:41)
[2022-09-07] MEDS: ALBUTEROL 0.083% 2.5 MG/3 ML NEBU INH SCH ×2 (01:00→07:41)
[2022-09-07 04:00] VITALS: BP 123/78
--- NOTE | 2022-09-07 04:04 | NUR ---
HHN TX NOT GIVEN AT 0100 SCHEDULED TIME, RT WAS CALLED AWAY AND NOT AVAILABLE TO ADMINISTER.
--- NOTE | 2022-09-07 05:20 | NUR ---
DURING PICC LINE DRESSING CHANGE, NOTICED THE CATHETER LENGTH THAT STICK OUT FROM THE INSERTION SITE IS 3 INCHES LONG, PICC LINE DISCONTINUED WITH TIP INTACT, PERIPHERAL IV LINE INSERTED TO RT HAND #[id number] WITH GOOD BLOOD RETURN.
--- NOTE | 2022-09-07 07:10 | NUR ---
PT AWAKE, NO SIGNS OF DISTRESS, REPORT GIVEN TO CHAPITO PHILLIP FOR CONTINUITY OF CARE.
[2022-09-07 08:00] VITALS: BP 132/79
[2022-09-07] MEDS ORDERED: FURO-570 PO (09:30)
[2022-09-07] MEDS ORDERED: POTA8TAB19 PO (09:30)
[2022-09-07] MEDS: FUROSEMIDE 20 MG/2 ML VIAL IVP SCH (09:34)
[2022-09-07] MEDS: PANTOPRAZOLE 40 MG INJ VIAL IVP SCH (09:35)
== END 2022-09-07 12:10 | disposition home or self-care (01) | DRG 870 ==
LOC: MED 20:01 → MTU 21:41 → MIC 23:40 → MTU 09-04 20:06
PROC: 30233N1 Transfusion of Nonautologous Red Blood Cells into Peripheral Vein, Percutaneous Approach (ICD-10-PCS; 2022-08-19)
PROC: 5A09357 Assistance with Respiratory Ventilation, Less than 24 Consecutive Hours, Continuous Positive Airway Pressure (ICD-10-PCS; 2022-08-20)
PROC: 5A1955Z Respiratory Ventilation, Greater than 96 Consecutive Hours (ICD-10-PCS; 2022-08-21)
PROC: 5A09357 Assistance with Respiratory Ventilation, Less than 24 Consecutive Hours, Continuous Positive Airway Pressure (ICD-10-PCS; 2022-08-21)
PROC: 0BH17EZ Insertion of Endotracheal Airway into Trachea, Via Natural or Artificial Opening (ICD-10-PCS; principal; 2022-08-21 17:10)
PROC: 3E0G8GC Introduction of Other Therapeutic Substance into Upper GI, Via Natural or Artificial Opening Endoscopic (ICD-10-PCS; 2022-08-22)
DX: A41.9 Sepsis, unspecified organism (principal); E43 Unspecified severe protein-calorie malnutrition; R65.21 Severe sepsis with septic shock; N17.0 Acute kidney failure with tubular necrosis; J96.22 Acute and chronic respiratory failure with hypercapnia; J96.21 Acute and chronic respiratory failure with hypoxia; K25.4 Chronic or unspecified gastric ulcer with hemorrhage; J69.0 Pneumonitis due to inhalation of food and vomit; D62 Acute posthemorrhagic anemia; E87.1 Hypo-osmolality and hyponatremia; E66.2 Morbid (severe) obesity with alveolar hypoventilation; Z68.41 Body mass index [BMI] 40.0-44.9, adult; E87.5 Hyperkalemia; E83.41 Hypermagnesemia; E83.51 Hypocalcemia; I50.9 Heart failure, unspecified; D75.839 Thrombocytosis, unspecified; R74.01 Elevation of levels of liver transaminase levels; E86.0 Dehydration; K76.82 Hepatic encephalopathy; F10.20 Alcohol dependence, uncomplicated; K70.30 Alcoholic cirrhosis of liver without ascites; Z20.822 Contact with and (suspected) exposure to COVID-19; D63.8 Anemia in other chronic diseases classified elsewhere; Z59.00 Homelessness unspecified
CPT/HCPCS: 36415; 36430; 36600; 71045; 71250; 76700; 80048; 80053; 80202; 80305; 81003; 82140; 82150; 82272; 82306; 82330; 82803; 82948; 83036; 83605; 83690; 83735; 83880; 84100; 84439; 84443; 84484; 85025; 85610; 85730; 86704; 86706; 86708; 86709; 86803; 86886; 86900; 86901; 86920; 87040; 87070; 87081; 87086; 87205; 87340; 89220; 92526; 93005; 94002; 94003; 94640; 94660; 99291; A9153; C9113; J0171; J0456; J0610; J0696; J1610; J1644; J1815; J1940; J2250; J2270; J2405; J2543; J2704; J3010; J3370; J3480; J3490; J7030; J7060; J7613; J7644; P9016; Q0092